=== PATIENT | female | born 1930 | race Caucasian/White ===

== ENCOUNTER 2016-05-09 21:37 | Emergency (ER) | payer MEDICARE, OTHER ==
[~2016-05-09] VITALS: Ht 152.4 cm; Wt 48.1 kg
[2016-05-09 22:38] LABS: BASOPHILS # (AUTO) 0.1 K/uL (0.0-0.2); BASOPHILS % (AUTO) 0.8 % (0.0-2.0); EOSINOPHILS # (AUTO) 0.2 K/uL (0.0-0.7); EOSINOPHILS % (AUTO) 3.3 % (0.0-7.0); HEMATOCRIT 38.5 % (37.0-47.0); HEMOGLOBIN 12.8 g/dL (12.0-16.0); LYMPHOCYTES # (AUTO) 2.4 K/uL (0.8-4.8); LYMPHOCYTES % (AUTO) 34.9 % (20.5-51.5); MEAN CORPUSCULAR HEMOGLOBIN 30.9 uug (27.0-31.0); MEAN CORPUSCULAR HGB CONC 33 g/dL (32.0-37.0); MEAN CORPUSCULAR VOLUME 92.7 fL (81.0-99.0); MONOCYTES # (AUTO) 0.6 K/uL (0.1-1.30); MONOCYTES % (AUTO) 8.7 % (0.0-11.0); NEUTROPHILS # (AUTO) 3.5 K/uL (1.8-8.9); NEUTROPHILS % (AUTO) 52.3 % (38.5-71.5); PLATELET COUNT (AUTO) 160 K/uL (150-450); RED BLOOD CELL COUNT(AUTO) 4.15 MIL/uL (4.20-5.40); RED CELL DISTRIBUTION WIDTH 12.6 % (11.5-14.5); WHITE BLOOD COUNT (AUTO) 6.8 K/uL (4.0-11.2)
[2016-05-09 22:45] LABS: CALCIUM 8.9 mg/dL (8.5-10.1); CREATININE 1.1 mg/dL (0.6-1.3); POTASSIUM 3.5 mmol/L (3.5-5.1)
[2016-05-09 22:59] LABS: ALBUMIN 3.4 g/dL (3.4-5.0); BILIRUBIN,DIRECT 0.1 mg/dL (0.0-0.2); BILIRUBIN,TOTAL 0.4 mg/dL (0.2-1.0); TOTAL PROTEIN, SERUM 6.8 g/dL (6.4-8.2)
--- NOTE | 2016-05-09 23:42 | NUR ---
Patient discharged to home in stable conditon WITH TAXI TAKING PT HOME. Written and verbal after care instructions given. Patient verbalizes understanding of instructions. WALKED OUT OF ER WITH STEADY GAIT. NO DISTRESS NOTED
[2016-05-09 23:43] VITALS: BP 131/55
== END 2016-05-09 23:44 | disposition home or self-care (01) ==
LOC: ER 21:37
DX: Z00.8 Encounter for other general examination (principal); K21.9 Gastro-esophageal reflux disease without esophagitis; Z88.6 Allergy status to analgesic agent; Z88.8 Allergy status to other drugs, medicaments and biological substances
CPT/HCPCS: 36415; 70030-TC; 84443; 85025; 85730; 93005; A4663

== ENCOUNTER 2016-07-28 19:54 | Inpatient (IN) | payer MEDICARE, OTHER ==
[~2016-07-28] VITALS: Ht 160 cm; Wt 49.9 kg
[2016-07-28] MEDS ORDERED: DORZ10DR8 EACHEYE (20:11)
[2016-07-28] MEDS ORDERED: TETRACAINE HCL 0.5% OPHT DROP 2 ML BOTTLE OP ONE (20:15)
[2016-07-28 20:27] LABS: BASOPHILS # (AUTO) 0.1 K/uL (0.0-8.0); BASOPHILS % (AUTO) 0.9 % (0.0-2.0); EOSINOPHILS # (AUTO) 0.2 K/uL (0.0-0.7); EOSINOPHILS % (AUTO) 1.9 % (0.0-7.0); HEMATOCRIT 39.2 % (37-47); LYMPHOCYTES # (AUTO) 2.8 K/UL (0.8-4.8); LYMPHOCYTES % (AUTO) 32.4 % (20.5-51.5); MEAN CORPUSCULAR HEMOGLOBIN 30.9 UUG (27.0-31.0); MEAN CORPUSCULAR HGB CONC 33 g/dL (32.0-37.0); MEAN CORPUSCULAR VOLUME 93.4 FL (81.0-99.0); MONOCYTES # (AUTO) 0.8 K/UL (0.1-1.30); MONOCYTES % (AUTO) 9.1 % (0.0-11.0); NEUTROPHILS # (AUTO) 4.9 K/UL (1.8-8.9); NEUTROPHILS % (AUTO) 55.7 % (38.5-71.5); PLATELET COUNT (AUTO) 195 K/UL (150-450); RED BLOOD CELL COUNT(AUTO) 4.19 MIL/UL (4.2-5.4); WHITE BLOOD COUNT (AUTO) 8.8 K/UL (4.0-11.2)
[2016-07-28 20:36] LABS: CARBON DIOXIDE 27 mmol/L (21-32); CHLORIDE 99 mmol/L (98-107); CREATININE 0.8 mg/dL (0.6-1.3); GLUCOSE 99 mg/dL (74-106); POTASSIUM 3.6 mmol/L (3.5-5.1); UREA NITROGEN, BLOOD 13 mg/dL (7-18)
[2016-07-28 20:42] LABS: ALANINE AMINOTRANSFERASE 23 U/L (14-59); ALKALINE PHOSPHATASE 89 U/L (50-136); ASPARTATE AMINOTRANSFERASE 26 U/L (15-37); BILIRUBIN,DIRECT 0.1 mg/dL (0.0-0.2); BILIRUBIN,TOTAL 0.3 mg/dL (0.2-1.0)
[2016-07-28] MEDS ORDERED: IV NORMAL SALINE 250 ML IV ONE (21:00)
[2016-07-28] MEDS ORDERED: IOHEXOL 350 100 ML INFUS..BTL ONE (21:00)
[2016-07-28] MEDS ORDERED: NORMAL SALINE FLUSH 10 ML DISP.SYRIN ONE (21:00)
--- NOTE | 2016-07-28 21:37 | NUR ---
Patient returned from Ct scan.
[2016-07-28] MEDS ORDERED: AMOX500C2 PO (21:39)
--- NOTE | 2016-07-28 21:56 | NUR ---
Call placed to [facility], Wendy Tena will be paged.
--- NOTE | 2016-07-28 22:30 | NUR ---
Call placed to [facility], Maria Del Carmen Pham will be paged.
[2016-07-28] MEDS ORDERED: ACETAMINOPHEN 325 MG TABLET PO PRN (23:15)
[2016-07-28] MEDS ORDERED: ONDANSETRON 4 MG/2 ML VIAL IV PRN (23:15)
[2016-07-28] MEDS ORDERED: HYDROCODONE/APAP 5-325MG TABLET PO PRN (23:15)
[2016-07-28] MEDS ORDERED: Z GUARD REMEDY PASTE 57 GM TUBE TOP PRN (23:15)
[2016-07-28] MEDS ORDERED: MAGNESIUM HYDROXIDE 30 ML LIQUID UDC PO PRN (23:15)
[2016-07-28] MEDS ORDERED: ENOXAPARIN SODIUM 30 MG/0.3 ML DISP.SYRIN SQ SCH (23:15)
--- NOTE | 2016-07-28 23:34 | NUR ---
Report called to JACKIE Boles. patient will be admitted to room 220 under telemetry.
--- NOTE | 2016-07-28 23:46 | NUR ---
US tech here at bedside, orders placed by inpatient MD.
[2016-07-29] VITALS: BP 118/53
--- NOTE | 2016-07-29 00:50 | NUR ---
admitted new patient to room 220.patient alert,oriented x4,patient reports no numbness at present times,no focal deficits,speech clear,bilateral pedal pulse intact.tele monitor shown SR, no acute distress noted.
--- NOTE | 2016-07-29 02:30 | NUR ---
PATIENT WAS SEEN BY DR. LANDIS.
[2016-07-29] MEDS ORDERED: TEMAZEPAM 7.5 MG CAPSULE PO PRN (02:45)
[2016-07-29] MEDS ORDERED: ONDANSETRON 4 MG/2 ML VIAL ONE (03:06)
--- NOTE | 2016-07-29 03:10 | NUR ---
PATIENT C/O NAUSEA, ZOFRAN 4 MG IV ADMIN.
[2016-07-29 04:00] VITALS: BP 115/54
--- NOTE | 2016-07-29 04:00 | NUR ---
NAUSEA RESOLVED,PATIENT SLEEPING,CONTINUE CLOSELY MONITOR.
--- NOTE | 2016-07-29 06:00 | NUR ---
NO ACUTE DISTRESS NOTED,NSR ON MONITOR, VITAL SIGNS REMAIN STABLE.
[2016-07-29 06:56] LABS: BASOPHILS % (AUTO) 0.6 % (0.0-2.0); EOSINOPHILS # (AUTO) 0.2 K/uL (0.0-0.7); EOSINOPHILS % (AUTO) 2.2 % (0.0-7.0); HEMATOCRIT 38.5 % (37-47); HEMOGLOBIN 12.9 G/DL (12.0-16.0); LYMPHOCYTES # (AUTO) 2.8 K/UL (0.8-4.8); LYMPHOCYTES % (AUTO) 36.9 % (20.5-51.5); MEAN CORPUSCULAR HEMOGLOBIN 31.4 UUG (27.0-31.0); MEAN CORPUSCULAR HGB CONC 34 g/dL (32.0-37.0); MEAN CORPUSCULAR VOLUME 93.3 FL (81.0-99.0); MONOCYTES # (AUTO) 0.7 K/UL (0.1-1.30); MONOCYTES % (AUTO) 9.4 % (0.0-11.0); NEUTROPHILS # (AUTO) 3.9 K/UL (1.8-8.9); NEUTROPHILS % (AUTO) 50.9 % (38.5-71.5); PLATELET COUNT (AUTO) 190 K/UL (150-450); RED BLOOD CELL COUNT(AUTO) 4.12 MIL/UL (4.2-5.4); WHITE BLOOD COUNT (AUTO) 7.6 K/UL (4.0-11.2)
[2016-07-29] MEDS: PANTOPRAZOLE SODIUM 40 MG TABLET.DR PO SCH (07:00)
--- NOTE | 2016-07-29 07:10 | NUR ---
PATIENT RECEIVED IN ROOM ALERT AWAKE IN NO ACUTE DISTRESS. DENIED PAIN. SR ON CARPET TECHNICIAN.
[2016-07-29 08:03] LABS: CARBON DIOXIDE 28 mmol/L (21-32); CHLORIDE 106 mmol/L (98-107); CREATININE 0.8 mg/dL (0.6-1.3); GLUCOSE 92 mg/dL (74-106); MAGNESIUM 2.3 mg/dL (1.8-2.4); PHOSPHOROUS 4.7 mg/dL (2.5-4.9); POTASSIUM 4.4 mmol/L (3.5-5.1); UREA NITROGEN, BLOOD 12 mg/dL (7-18)
[2016-07-29] MEDS: ASPIRIN 325 MG TABLET PO SCH (08:57)
[2016-07-29] MEDS: AMOXICILLIN TRIHYDRATE 500 MG CAPSULE PO SCH ×3 (11:33→21:14)
[2016-07-29 12:10] VITALS: BP 102/60
[2016-07-29] MEDS: DORZOLAMIDE 2% OPHT DROP 10 ML BOTTLE EACHEYE SCH ×2 (13:00→18:09)
--- NOTE | 2016-07-29 14:14 | NUR ---
PATIENT LEAVING FOR MRI VIA AMBULANCE. PATIENT ALERT AND ORIENTED IN NO ACUTE DISTRESS.
--- NOTE | 2016-07-29 15:40 | NUR ---
PATIENT RETURNED FROM MRI. NO S/S OF DISTRESS OBSERVED.
[2016-07-29 15:49] VITALS: BP 110/55
--- NOTE | 2016-07-29 18:52 | NUR ---
END OF SHIFT NOTE: PATIENT IN NO ACUTE DISTRESS THROUGHOUT SHIFT. VSS. DENIED PAIN. INDEPENDENT WITH ADLs. NEEDS MET BY STAFF.
[2016-07-29 20:16] VITALS: BP 100/54
[2016-07-29] MEDS ORDERED: MAG HYDROX/AL HYDROX/SIMETH 30 ML LIQUID UDC PO PRN (20:45)
[2016-07-29] MEDS ORDERED: ENOXAPARIN SODIUM 30 MG/0.3 ML DISP.SYRIN SQ SCH (21:00)
[2016-07-30 04:49] VITALS: BP 107/44
[2016-07-30] MEDS: PANTOPRAZOLE SODIUM 40 MG TABLET.DR PO SCH (06:08)
[2016-07-30] MEDS: AMOXICILLIN TRIHYDRATE 500 MG CAPSULE PO SCH ×2 (06:08→13:57)
--- NOTE | 2016-07-30 06:41 | NUR ---
PT IN BED, SLEEPING AT THIS TIME. IN NO ACUTE SIGNS OF DISTRESS. C/O STOMACH UPSET LAST NIGHT, DR. PEREZ ORDERED MYLANTA, BUT REFUSED TO TAKE IT, SHE SAID SHE FELT BETTER AFTER WALKING IN THE HALLWAY. SAFETY MAINTAINED THROUGHOUT SHIFT. CALL LIGHT WITHIN REACH.
--- NOTE | 2016-07-30 08:20 | NUR ---
PATIENT AMBULATING AROUND FACILITY WITHOUT DIFFICULTY.
[2016-07-30] MEDS: ASPIRIN 325 MG TABLET PO SCH (09:00)
[2016-07-30] MEDS: DORZOLAMIDE 2% OPHT DROP 10 ML BOTTLE EACHEYE SCH ×3 (09:51→17:00)
[2016-07-30 11:43] VITALS: BP 118/56
--- NOTE | 2016-07-30 14:00 | NUR ---
PATIENT PARTICIPATED WITH PT AND TOLERATED WELL.
--- NOTE | 2016-07-30 15:35 | NUR ---
Discharge Plan: Once patient is medically cleared patient will be discharged back home [[id number] [facility] [place] [address]
[2016-07-30 15:49] VITALS: BP 113/48
[2016-07-30] MEDS ORDERED: ASPI81TA31 PO (17:51)
--- NOTE | 2016-07-30 18:30 | NUR ---
DISCHARGING PATIENT HOME IN A STABLE CONDITION. STROKE EDUCATION PROVIDED AND VOICED UNDERSTANDING. DISCHARGE INSTRUCTIONS PROVIDED. LIST OF BELONGINGS SIGNED AND ALL WAS TAKEN. IV REMOVED, PRESSURE APPLIED AND HEMOSTASIS ACHIEVED. PATIENT LEAVING VIA PRIVATE CAR ACCOMPANIED BY DAUGHTER.
== END 2016-07-30 18:30 | disposition home or self-care (01) | DRG 69 ==
LOC: ER 19:58 → TELE 07-29 00:12 → MED 07-29 17:15
PROVIDERS: ADMIT Nurse Practitioner Acute Care; ATTEND Internal Medicine
DX: G45.9 Transient cerebral ischemic attack, unspecified (principal); E44.0 Moderate protein-calorie malnutrition; Z68.1 Body mass index [BMI] 19.9 or less, adult; G43.109 Migraine with aura, not intractable, without status migrainosus; I67.82 Cerebral ischemia; G43.B0 Ophthalmoplegic migraine, not intractable; H40.9 Unspecified glaucoma; Z86.79 Personal history of other diseases of the circulatory system; M81.0 Age-related osteoporosis without current pathological fracture; J44.9 Chronic obstructive pulmonary disease, unspecified; K21.9 Gastro-esophageal reflux disease without esophagitis; E88.09 Other disorders of plasma-protein metabolism, not elsewhere classified; M62.50 Muscle wasting and atrophy, not elsewhere classified, unspecified site; E78.5 Hyperlipidemia, unspecified; Z87.891 Personal history of nicotine dependence; M19.90 Unspecified osteoarthritis, unspecified site
CPT/HCPCS: 36415; 70030-TC; 70470; 70551; 71010; 83735; 84100; 84443; 85025; 85651; 85730; 86850; 86900; 86901; 93005; 93307; 93880; 97161; A4663; J1650; J2405; J3490; J7050; Q9967

== ENCOUNTER 2016-08-11 06:53 | Emergency (ER) | payer MEDICARE, OTHER ==
[~2016-08-11] VITALS: Ht 152.4 cm; Wt 49.0 kg
[~2016-08-11 06:53] MED LIST: AMOX500C2 PO; ASPI81TA31 PO; DORZ10DR8 EACHEYE
[2016-08-11] MEDS ORDERED: ONDANSETRON 4 MG/2 ML VIAL IV ONE (07:30)
[2016-08-11] MEDS ORDERED: HYDROMORPHONE 1 MG/1 ML DISP.SYRIN IV ONE (07:30)
[2016-08-11] MEDS ORDERED: PANTOPRAZOLE SODIUM 40 MG VIAL IV ONE (07:30)
[2016-08-11 07:51] LABS: BASOPHILS # (AUTO) 0.1 K/uL (0.0-8.0); BASOPHILS % (AUTO) 0.8 % (0.0-2.0); EOSINOPHILS # (AUTO) 0.2 K/uL (0.0-0.7); EOSINOPHILS % (AUTO) 2.7 % (0.0-7.0); HEMATOCRIT 40.2 % (37-47); HEMOGLOBIN 13.5 G/DL (12.0-16.0); LYMPHOCYTES # (AUTO) 2.3 K/UL (0.8-4.8); MEAN CORPUSCULAR HEMOGLOBIN 31.2 UUG (27.0-31.0); MEAN CORPUSCULAR HGB CONC 34 g/dL (32.0-37.0); MEAN CORPUSCULAR VOLUME 92.9 FL (81.0-99.0); MONOCYTES # (AUTO) 0.4 K/UL (0.1-1.30); MONOCYTES % (AUTO) 5.8 % (0.0-11.0); NEUTROPHILS # (AUTO) 4.5 K/UL (1.8-8.9); NEUTROPHILS % (AUTO) 59.7 % (38.5-71.5); PLATELET COUNT (AUTO) 216 K/UL (150-450); RED BLOOD CELL COUNT(AUTO) 4.33 MIL/UL (4.2-5.4); WHITE BLOOD COUNT (AUTO) 7.5 K/UL (4.0-11.2)
[2016-08-11] MEDS ORDERED: ONDANSETRON 4 MG/2 ML VIAL ONE ×2 (07:54→08:52)
[2016-08-11] MEDS ORDERED: PANTOPRAZOLE SODIUM 40 MG VIAL ONE (07:54)
[2016-08-11] MEDS ORDERED: HYDROMORPHONE 1 MG/1 ML DISP.SYRIN ONE (07:54)
[2016-08-11 07:59] LABS: CARBON DIOXIDE 29 mmol/L (21-32); CHLORIDE 105 mmol/L (98-107); CREATININE 0.9 mg/dL (0.6-1.3); GLUCOSE 90 mg/dL (74-106); POTASSIUM 3.3 mmol/L (3.5-5.1); UREA NITROGEN, BLOOD 12 mg/dL (7-18)
[2016-08-11 08:05] LABS: ALANINE AMINOTRANSFERASE 25 U/L (14-59); ALKALINE PHOSPHATASE 90 U/L (50-136); ASPARTATE AMINOTRANSFERASE 27 U/L (15-37); BILIRUBIN,DIRECT 0.1 mg/dL (0.0-0.2); BILIRUBIN,TOTAL 0.6 mg/dL (0.2-1.0); LIPASE 104 U/L (73-393); TOTAL PROTEIN, SERUM 7.3 g/dL (6.4-8.2)
[2016-08-11 08:11] LABS: *BILIRUBIN,URIN NEGATIVE (NEGATIVE); *BLOOD, URINE NEGATIVE (NEGATIVE); *CLARITY,URINE CLEAR (CLEAR); *COLOR,URINE YELLOW (YELLOW); *KETONES,URINE NEGATIVE (NEGATIVE); *PROTEIN,URINE NEGATIVE (NEGATIVE); *UROBILINOGEN,URINE 0.2 E.U./dl (NORMAL); LEUKOCYTE ESTERASE ,URINE NEGATIVE (NEGATIVE); NITRITE, URINE NEGATIVE (NEGATIVE); UGLUCOSE NEGATIVE (NEGATIVE)
[2016-08-11 08:23] LABS: BACTERIA,URINE NONE SEEN /HPF (NONE SEEN); RBC,URINE 0-3 /HPF (0-3); SQUAMOUS EPITHELIAL CELL,UR FEW /HPF (NONE SEEN); WBC,URINE 0-3 /HPF (0-3)
[2016-08-11] MEDS ORDERED: ONDANSETRON IV *ER 4 MG/2 ML VIAL IV ONE (08:45)
[2016-08-11] MEDS ORDERED: IV NORMAL SALINE 1000 ML BAG IV ONE (08:45)
[2016-08-11] MEDS ORDERED: PROMETHAZINE HCL 25 MG/1 ML VIAL IV ONE (09:30)
[2016-08-11] MEDS ORDERED: PROMETHAZINE HCL 25 MG/1 ML VIAL ONE (09:37)
--- NOTE | 2016-08-11 10:25 | NUR ---
fluid done. d/c instruction ready but the pt is lethargic and not ready to be d/stephan. md notified. vs stable, relief of pain and nausea aT THIS POINT.
--- NOTE | 2016-08-11 14:07 | NUR ---
PT FEELS READY TO GO HOME. CALLED TAXI PER PT REQUEST. Patient discharged to home in stable conditon. Written and verbal after care instructions given. Patient verbalizes understanding of instructions.PT WALKS IN STEADY GAIT.
[2016-08-11 14:08] VITALS: BP 111/61
== END 2016-08-11 14:10 | disposition home or self-care (01) ==
LOC: ER 06:56
DX: K52.9 Noninfective gastroenteritis and colitis, unspecified (principal); K21.9 Gastro-esophageal reflux disease without esophagitis; H40.9 Unspecified glaucoma; Z88.6 Allergy status to analgesic agent; Z88.8 Allergy status to other drugs, medicaments and biological substances; Z79.82 Long term (current) use of aspirin
CPT/HCPCS: 36415; 71010; 74176; 80048; 80076; 81001; 83690; 84484; 85025; 87086; 96361; 96365; 96374; 96375; 99285; A4663; C9113; J1170; J2405 ×2; J2550; J7030 ×2; 70030-TC

== ENCOUNTER 2016-08-30 07:32 | Inpatient (IN) | payer MEDICARE, OTHER ==
[~2016-08-30] VITALS: Ht 152.4 cm; Wt 48.5 kg
[~2016-08-30 07:32] MED LIST changes: -AMOX500C2 PO; -ASPI81TA31 PO
[2016-08-30] MEDS ORDERED: LORA-114 PO (07:57)
[2016-08-30] MEDS ORDERED: ALBU18HF2 IH (07:58)
--- NOTE | 2016-08-30 08:06 | NUR ---
PT IS IN ROOM #2A. DR STOKES EVALUATED THE PT.
[2016-08-30] MEDS ORDERED: IV NORMAL SALINE 1000 ML BAG IV ONE (08:30)
[2016-08-30] MEDS ORDERED: CEFTRIAXONE 1 G in IV DEXTROSE 5% 50 ML IV ONE (08:30)
[2016-08-30] MEDS ORDERED: IPRATROPIUM BROMIDE 0.5 MG/2.5 ML NEBU NEB ONE (08:30)
[2016-08-30] MEDS ORDERED: methylPREDNISolone SOD SUCC 125 MG/2 ML VIAL IV ONE (08:30)
[2016-08-30] MEDS ORDERED: ALBUTEROL SULFATE 2.5 MG/3 ML NEBU NEB ONE (08:30)
[2016-08-30] MEDS ORDERED: AZITHROMYCIN 250 MG TABLET PO ONE (08:30)
[2016-08-30] MEDS ORDERED: methylPREDNISolone SOD SUCC 125 MG/2 ML VIAL ONE (08:49)
[2016-08-30] MEDS ORDERED: CEFTRIAXONE 1 G VIAL ONE (08:49)
[2016-08-30] MEDS ORDERED: AZITHROMYCIN 250 MG TABLET ONE (08:50)
[2016-08-30] MEDS ORDERED: LEVOFLOXACIN 500 MG/D5W 500 MG in PREMIXED 1 EACH IV ONE ×2 (09:00→14:00)
[2016-08-30] MEDS ORDERED: IPRATROPIUM BROMIDE 0.5 MG/2.5 ML NEBU ONE (09:02)
[2016-08-30] MEDS ORDERED: ALBUTEROL SULFATE 2.5 MG/3 ML NEBU ONE (09:02)
[2016-08-30 09:16] LABS: BASOPHILS # (AUTO) 0.1 K/uL (0.0-8.0); BASOPHILS % (AUTO) 0.6 % (0.0-2.0); EOSINOPHILS # (AUTO) 0.2 K/uL (0.0-0.7); EOSINOPHILS % (AUTO) 1.8 % (0.0-7.0); HEMATOCRIT 40.3 % (37-47); HEMOGLOBIN 13.1 G/DL (12.0-16.0); LYMPHOCYTES # (AUTO) 2.6 K/UL (0.8-4.8); LYMPHOCYTES % (AUTO) 25.3 % (20.5-51.5); MEAN CORPUSCULAR HEMOGLOBIN 30.7 UUG (27.0-31.0); MEAN CORPUSCULAR HGB CONC 33 g/dL (32.0-37.0); MEAN CORPUSCULAR VOLUME 94.7 FL (81.0-99.0); MONOCYTES # (AUTO) 0.5 K/UL (0.1-1.30); MONOCYTES % (AUTO) 5.2 % (0.0-11.0); NEUTROPHILS # (AUTO) 6.8 K/UL (1.8-8.9); NEUTROPHILS % (AUTO) 67.1 % (38.5-71.5); PLATELET COUNT (AUTO) 144 K/UL (150-450); RED BLOOD CELL COUNT(AUTO) 4.26 MIL/UL (4.2-5.4); WHITE BLOOD COUNT (AUTO) 10.2 K/UL (4.0-11.2)
[2016-08-30 09:24] LABS: ALANINE AMINOTRANSFERASE 28 U/L (14-59); ALKALINE PHOSPHATASE 97 U/L (50-136); ASPARTATE AMINOTRANSFERASE 26 U/L (15-37); BILIRUBIN,DIRECT 0.1 mg/dL (0.0-0.2); BILIRUBIN,TOTAL 0.5 mg/dL (0.2-1.0); CARBON DIOXIDE 25 mmol/L (21-32); CHLORIDE 103 mmol/L (98-107); CREATININE 0.9 mg/dL (0.6-1.3); GLUCOSE 87 mg/dL (74-106); POTASSIUM 3.7 mmol/L (3.5-5.1); TOTAL PROTEIN, SERUM 7.5 g/dL (6.4-8.2); UREA NITROGEN, BLOOD 14 mg/dL (7-18)
[2016-08-30 09:44] LABS: BAND % (MANUAL) 2 % (0-10); EOSINOPHILS % (MANUAL) 2 % (0-8); LYMPHOCYTES % (MANUAL) 29 % (20-40); METAMYELOCYTES % 1 % (0-1); MONOCYTES % (MANUAL) 8 % (2-10); NEUTROPHILS % (MANUAL) 58 % (42-75)
[2016-08-30 10:33] LABS: *BILIRUBIN,URIN NEGATIVE (NEGATIVE); *BLOOD, URINE NEGATIVE (NEGATIVE); *CLARITY,URINE CLEAR (CLEAR); *COLOR,URINE YELLOW (YELLOW); *KETONES,URINE NEGATIVE (NEGATIVE); *PROTEIN,URINE NEGATIVE (NEGATIVE); *UROBILINOGEN,URINE 0.2 E.U./dl (NORMAL); LEUKOCYTE ESTERASE ,URINE TRACE (NEGATIVE); NITRITE, URINE NEGATIVE (NEGATIVE); UGLUCOSE NEGATIVE (NEGATIVE)
[2016-08-30 10:44] LABS: BACTERIA,URINE NONE SEEN /HPF (NONE SEEN); RBC,URINE 0-3 /HPF (0-3); SQUAMOUS EPITHELIAL CELL,UR FEW /HPF (NONE SEEN); WBC,URINE 0-3 /HPF (0-3)
--- NOTE | 2016-08-30 10:58 | NUR ---
PT WAS TRANSFERED TO M/S BED #204. REPORT WAS GIVEN TO M/S RN.
--- NOTE | 2016-08-30 11:30 | NUR ---
RECEIVED FOR ADMISSION 86 YEARS OLD FEMALE FROM THE ED WITH DX OF COPD EXERCEBATION PLACED INTO BED FIXED AND MADE COMFORTABLE PATIENT IS ALERT AND ORIENTED DENIES PAIN OR DISCOMFORTS AT THIS TIME STATED THAT HE FEELS COMFORTABLE AT THIS TIME SINCE HE RECEIVED THE STEROIDS AND ANTIBIOTICS. DR SANON HERE WITH DIET ORDERS AND NOTED.
[2016-08-30 11:33] VITALS: BP 109/56
[2016-08-30] MEDS ORDERED: Z GUARD REMEDY PASTE 57 GM TUBE TOP PRN (13:00)
[2016-08-30] MEDS ORDERED: ZOLPIDEM 5 MG TABLET PO PRN (13:00)
[2016-08-30] MEDS ORDERED: ACETAMINOPHEN 325 MG TABLET PO PRN (13:00)
[2016-08-30] MEDS ORDERED: IPRATROPIUM BROMIDE 0.5 MG/2.5 ML NEBU NEB PRN (13:00)
[2016-08-30] MEDS ORDERED: HYDROCODONE/APAP 5-325MG TABLET PO PRN (13:00)
[2016-08-30] MEDS ORDERED: ONDANSETRON 4 MG/2 ML VIAL IV PRN (13:00)
[2016-08-30] MEDS ORDERED: ALBUTEROL SULFATE 2.5 MG/ 0.5 ML NEBU NEB PRN (13:00)
[2016-08-30] MEDS ORDERED: LEVOFLOXACIN 750MG/D5W 750 MG in PREMIXED 1 EACH IV SCH (13:00)
[2016-08-30] MEDS ORDERED: MAGNESIUM HYDROXIDE 30 ML LIQUID UDC PO PRN (13:00)
[2016-08-30] MEDS ORDERED: LEVOFLOXACIN 500 MG/D5W 500 MG in PREMIXED 1 EACH IV SCH ×2 (13:15→14:00)
[2016-08-30] MEDS ORDERED: methylPREDNISolone SOD SUCC 125 MG/2 ML VIAL IV SCH ×2 (14:00)
[2016-08-30] MEDS: methylPREDNISolone SOD SUCC 40 MG/ML VIAL IV SCH ×2 (14:59→21:23)
--- NOTE | 2016-08-30 15:00 | NUR ---
PATIENT IS REQUESTING FOR A ROOM CHANGE DUE TO STATED THE PATIENT NEXT DOOR IS NOISY SO THE PATIENT MOVED TO ROOM 220.
[2016-08-30 16:00] VITALS: BP 118/54
[2016-08-30] MEDS ORDERED: DORZOLAMIDE 2% OPHT DROP 10 ML BOTTLE EACHEYE SCH (17:00)
--- NOTE | 2016-08-30 18:00 | NUR ---
PATIENT IS RESTING STATED DID NOT SLEEP MUCH LAST NITE DOZING ON AND OFF NO SHORTNESS OF BREATH NO DISTRESS NOTED.
[2016-08-30] MEDS: IPRATROPIUM BROMIDE 0.5 MG/2.5 ML NEBU NEB SCH (19:09)
[2016-08-30] MEDS: ALBUTEROL SULFATE 2.5 MG/ 0.5 ML NEBU NEB SCH (19:09)
[2016-08-30 20:00] VITALS: BP 111/44
--- NOTE | 2016-08-30 21:00 | NUR ---
Patient in bed having breathing treatment, no SOB denies chest pain. Vital signs are WNL.
[2016-08-30] MEDS: DORZOLAMIDE 2% OPHT DROP 10 ML BOTTLE EACHEYE SCH (21:19)
[2016-08-31] MEDS: IPRATROPIUM BROMIDE 0.5 MG/2.5 ML NEBU NEB SCH ×4 (00:49→19:30)
[2016-08-31] MEDS: ALBUTEROL SULFATE 2.5 MG/ 0.5 ML NEBU NEB SCH ×4 (00:49→19:30)
[2016-08-31 04:00] VITALS: BP 115/86
--- NOTE | 2016-08-31 05:42 | NUR ---
END OF SHIFT NOTES. PATIENT SLEPT WELL THROUGHOUT SHIFT. V/S STABLE. NO ACUTE DISTRESS NOTED. NO COMPLAINTS OF PAIN. SAFETY MAINTAINED. CALL LIGHT WITHIN REACH.
[2016-08-31] MEDS: methylPREDNISolone SOD SUCC 40 MG/ML VIAL IV SCH (06:00)
[2016-08-31] MEDS: PANTOPRAZOLE SODIUM 40 MG TABLET.DR PO SCH (06:00)
[2016-08-31 06:42] LABS: CARBON DIOXIDE 22 mmol/L (21-32); CHLORIDE 107 mmol/L (98-107); CHOLESTEROL 193 mg/dL (<200); GLUCOSE 169 mg/dL (74-106); HDL CHOLESTEROL 90 mg/dL (40-60); MAGNESIUM 2.1 mg/dL (1.8-2.4); PHOSPHOROUS 3.3 mg/dL (2.5-4.9); POTASSIUM 3.5 mmol/L (3.5-5.1); TRIGLYCERIDES 31 MG/DL (30-150); UREA NITROGEN, BLOOD 10 mg/dL (7-18)
[2016-08-31 07:06] LABS: EOSINOPHILS % (AUTO) 0.1 % (0.0-7.0); HEMATOCRIT 37.8 % (37-47); HEMOGLOBIN 12.9 G/DL (12.0-16.0); LYMPHOCYTES # (AUTO) 1.1 K/UL (0.8-4.8); LYMPHOCYTES % (AUTO) 5.5 % (20.5-51.5); MEAN CORPUSCULAR HEMOGLOBIN 31.8 UUG (27.0-31.0); MEAN CORPUSCULAR HGB CONC 34 g/dL (32.0-37.0); MEAN CORPUSCULAR VOLUME 93.5 FL (81.0-99.0); MONOCYTES # (AUTO) 0.4 K/UL (0.1-1.30); MONOCYTES % (AUTO) 2.1 % (0.0-11.0); NEUTROPHILS # (AUTO) 19.2 K/UL (1.8-8.9); NEUTROPHILS % (AUTO) 92.3 % (38.5-71.5); PLATELET COUNT (AUTO) 209 K/UL (150-450); RED BLOOD CELL COUNT(AUTO) 4.04 MIL/UL (4.2-5.4); WHITE BLOOD COUNT (AUTO) 20.7 K/UL (4.0-11.2)
[2016-08-31 07:38] LABS: BAND % (MANUAL) 17 % (0-10); LYMPHOCYTES % (MANUAL) 5 % (20-40); MONOCYTES % (MANUAL) 2 % (2-10); NEUTROPHILS % (MANUAL) 76 % (42-75)
[2016-08-31] MEDS: LORATADINE 10 MG TABLET PO SCH (08:15)
[2016-08-31] MEDS: DORZOLAMIDE 2% OPHT DROP 10 ML BOTTLE EACHEYE SCH ×2 (08:16→21:40)
[2016-08-31] MEDS ORDERED: LEVOFLOXACIN 500 MG/D5W 500 MG in PREMIXED 1 EACH IV ONE (09:00)
--- NOTE | 2016-08-31 10:30 | NUR ---
PATIENT IS ALERT AND ORIENTED COMPLAINED THAT SHE FELT SOME PAIN IN HER EYES AFTER TAKING HER EYE DROPS THAT LASTED FOR A FEW MINUTES AND STATED THAT SHE HAS HAD THIS KIND OF PAIN BEFORE BUT NOT INTENSE THIS AND SHE GAVE ME THE PHONE NUMBER OF HER EYE DOCTOR DR MUJICA AT [facility] AND I NOTIFIED YAS GUTHRIE AND SHE STATED WILL SEE PATIENT.
--- NOTE | 2016-08-31 11:51 | NUR ---
YAS COUNSELING PROGRAM LEADER HERE TO SEE PATIENT AND PATIENT ALSO COMPLAINED THAT SHE IS FEELING TREMORS AND DOES NOT USUALLY FEEL THIS WAY HER WBC IS 20.7 WITH ORDER TO RECHECK LABS ABD DISCONTINUE SOLU MEDROL AND NOTED.
[2016-08-31 12:22] VITALS: BP 115/45
[2016-08-31 14:57] LABS: CARBON DIOXIDE 20 mmol/L (21-32); CHLORIDE 106 mmol/L (98-107); CREATININE 1.1 mg/dL (0.6-1.3); GLUCOSE 150 mg/dL (74-106); POTASSIUM 3.5 mmol/L (3.5-5.1); UREA NITROGEN, BLOOD 11 mg/dL (7-18)
[2016-08-31 14:59] LABS: BASOPHILS # (AUTO) 0.3 K/uL (0.0-8.0); HEMOGLOBIN 13.1 G/DL (12.0-16.0); WHITE BLOOD COUNT (AUTO) 26.1 K/UL (4.0-11.2)
[2016-08-31 15:01] LABS: BASOPHILS % (AUTO) 1.2 % (0.0-2.0); EOSINOPHILS # (AUTO) 0.3 K/uL (0.0-0.7); HEMATOCRIT 38.2 % (37-47); MEAN CORPUSCULAR HEMOGLOBIN 32.2 UUG (27.0-31.0); MEAN CORPUSCULAR HGB CONC 34 g/dL (32.0-37.0); MEAN CORPUSCULAR VOLUME 93.4 FL (81.0-99.0); MONOCYTES % (AUTO) 3.8 % (0.0-11.0); NEUTROPHILS # (AUTO) 23.5 K/UL (1.8-8.9); PLATELET COUNT (AUTO) 220 K/UL (150-450); RED BLOOD CELL COUNT(AUTO) 4.09 MIL/UL (4.2-5.4)
--- NOTE | 2016-08-31 15:36 | NUR ---
REPEAT RESULT OF WBC IS 26.1 YAS TAPPER OPERATOR AWARE WITH NEW ORDERS AND NOTED.
[2016-08-31 15:37] VITALS: BP 122/45
[2016-08-31] MEDS: PIPERACILLIN/TAZOBACTAM/D5W 3.375 G in PREMIXED 1 EACH IV SCH ×2 (15:57→21:40)
--- NOTE | 2016-08-31 17:00 | NUR ---
ASSISTED PATIENT INTO THE SHOWER ROOM AND SHE SHOWERED AND BACK TO HER ROOM AND IS IN GOOD SPIRITS WITH NO SHORTNESS OF BREATH AT THIS TIME.
--- NOTE | 2016-08-31 18:00 | NUR ---
RESTING IN BED EATING DINNER HAS NO COMPLAINTS AT THIS TIME.
[2016-08-31 20:00] VITALS: BP 135/73
[2016-09-01] MEDS: IPRATROPIUM BROMIDE 0.5 MG/2.5 ML NEBU NEB SCH ×4 (00:58→19:42)
[2016-09-01] MEDS: ALBUTEROL SULFATE 2.5 MG/ 0.5 ML NEBU NEB SCH ×4 (00:59→19:42)
[2016-09-01 05:06] VITALS: BP 128/63
[2016-09-01] MEDS: PANTOPRAZOLE SODIUM 40 MG TABLET.DR PO SCH (06:00)
[2016-09-01] MEDS: PIPERACILLIN/TAZOBACTAM/D5W 3.375 G in PREMIXED 1 EACH IV SCH ×3 (06:03→21:11)
[2016-09-01 06:39] LABS: CARBON DIOXIDE 24 mmol/L (21-32); CHLORIDE 104 mmol/L (98-107); CREATININE 1.1 mg/dL (0.6-1.3); EOSINOPHILS % (AUTO) 0.1 % (0.0-7.0); GLUCOSE 99 mg/dL (74-106); HEMATOCRIT 36.2 % (37-47); HEMOGLOBIN 12.4 G/DL (12.0-16.0); LYMPHOCYTES % (AUTO) 10.5 % (20.5-51.5); MAGNESIUM 2.1 mg/dL (1.8-2.4); MEAN CORPUSCULAR HEMOGLOBIN 32.1 UUG (27.0-31.0); MEAN CORPUSCULAR HGB CONC 34 g/dL (32.0-37.0); MEAN CORPUSCULAR VOLUME 93.8 FL (81.0-99.0); MONOCYTES # (AUTO) 0.9 K/UL (0.1-1.30); MONOCYTES % (AUTO) 4.8 % (0.0-11.0); NEUTROPHILS # (AUTO) 15.8 K/UL (1.8-8.9); NEUTROPHILS % (AUTO) 84.6 % (38.5-71.5); PHOSPHOROUS 3.2 mg/dL (2.5-4.9); PLATELET COUNT (AUTO) 199 K/UL (150-450); POTASSIUM 3.7 mmol/L (3.5-5.1); RED BLOOD CELL COUNT(AUTO) 3.86 MIL/UL (4.2-5.4); UREA NITROGEN, BLOOD 24 mg/dL (7-18); WHITE BLOOD COUNT (AUTO) 18.7 K/UL (4.0-11.2)
--- NOTE | 2016-09-01 06:48 | NUR ---
pt alert,oriented,ambulatory,denies any pain or discomfort,vss,afebrile, productive cough,continue on HHN TREATMENT by RT. no acute distress,all needs attended,call light at reached.
--- NOTE | 2016-09-01 08:16 | NUR ---
ALERT ORIENTED AND VERBALLY RESPONSIVE DENIES PAIN OR DISCOMFORTS AT THIS TIME.LEFT HAND HEPLOCK INTACT FLUSHED PER PROTOCOL.NO S/S OF ADVERSE OR ALLERGIC REACTIONS AT THIS TIME.WALKING BACK AND FORTH IN THE HALLWAY WITH NO SHORTNESS OF BREATH AT THIS TIME.
[2016-09-01] MEDS: DORZOLAMIDE 2% OPHT DROP 10 ML BOTTLE EACHEYE SCH ×2 (09:08→21:12)
[2016-09-01] MEDS: LORATADINE 10 MG TABLET PO SCH (09:08)
[2016-09-01] MEDS: LEVOFLOXACIN 250MG /D5W 250 MG in PREMIXED 1 EACH IV SCH (09:08)
[2016-09-01] MEDS ORDERED: LORAZEPAM 0.5 MG TABLET PO PRN (11:15)
--- NOTE | 2016-09-01 11:29 | NUR ---
PATIENT SEEN AND EXAMINED BY YAS SMITH COMPENSATION ANALYST WITH NEW ORDERS AND NOTED.
[2016-09-01 12:01] VITALS: BP 110/54
--- NOTE | 2016-09-01 15:00 | NUR ---
REMAIN ON IV ANTIBIOTICS ORDERED WITH NO ADVERSE OR ALLERGIC REACTIONS AT THIS TIME.CONTINUE ON HAND HELD NEBULIZER ORDERED WITH RESPIRATIONS UNLABORED REMAIN ON ROOM AIR NOT IN DISTRESS AT THIS TIME.
[2016-09-01 15:55] VITALS: BP 117/69
--- NOTE | 2016-09-01 17:19 | NUR ---
RESTING NOT IN DISTRESS AT THIS TIME.
--- NOTE | 2016-09-01 18:00 | NUR ---
UP AND AMBULATING IN THE HALLWAY SHE IS IN GOOD SPIRITS STATED FEELING BETTER NO SHORTNESS OF BREATH AT THIS TIME.
--- NOTE | 2016-09-01 19:35 | NUR ---
PT RECEIVED IN BED, AWAKE. A/OX4. ABLE TO MAKE NEEDS KNOWN. V/S STABLE. NO ACUTE DISTRESS NOTED. NO COMPLAINTS OF PAIN AT THIS TIME. IV HEP-LOCKED, INTACT/PATENT. SAFETY MEASURES IMPLEMENTED. CALL LIGHT WITHIN REACH. WILL CONTINUE TO MONITOR.
[2016-09-01 20:42] VITALS: BP 114/65
[2016-09-02] MEDS: IPRATROPIUM BROMIDE 0.5 MG/2.5 ML NEBU NEB SCH ×3 (00:39→13:16)
[2016-09-02] MEDS: ALBUTEROL SULFATE 2.5 MG/ 0.5 ML NEBU NEB SCH ×3 (00:39→13:16)
[2016-09-02 04:00] VITALS: BP 119/62
--- NOTE | 2016-09-02 05:54 | NUR ---
END OF SHIFT NOTES. PT SLEPT WELL THROUGHOUT SHIFT. NEEDS ATTENDED. V/S STABLE. NO ACUTE DISTRESS NOTED. NO COMPLAINS OF PAIN. IV ANTIBIOTICS INFUSED. SAFETY MAINTAINED. CALL LIGHT WITHIN REACH.
[2016-09-02] MEDS: PANTOPRAZOLE SODIUM 40 MG TABLET.DR PO SCH (06:16)
[2016-09-02] MEDS: PIPERACILLIN/TAZOBACTAM/D5W 3.375 G in PREMIXED 1 EACH IV SCH ×2 (06:16→14:00)
[2016-09-02 07:12] LABS: BASOPHILS % (AUTO) 0.1 % (0.0-2.0); EOSINOPHILS # (AUTO) 0.2 K/uL (0.0-0.7); EOSINOPHILS % (AUTO) 1.9 % (0.0-7.0); HEMATOCRIT 37.8 % (37-47); HEMOGLOBIN 12.9 G/DL (12.0-16.0); LYMPHOCYTES # (AUTO) 3.3 K/UL (0.8-4.8); LYMPHOCYTES % (AUTO) 30.3 % (20.5-51.5); MEAN CORPUSCULAR HEMOGLOBIN 32.1 UUG (27.0-31.0); MEAN CORPUSCULAR HGB CONC 34 g/dL (32.0-37.0); MEAN CORPUSCULAR VOLUME 93.9 FL (81.0-99.0); MONOCYTES # (AUTO) 0.8 K/UL (0.1-1.30); MONOCYTES % (AUTO) 7.4 % (0.0-11.0); NEUTROPHILS # (AUTO) 6.6 K/UL (1.8-8.9); NEUTROPHILS % (AUTO) 60.3 % (38.5-71.5); PLATELET COUNT (AUTO) 181 K/UL (150-450); RED BLOOD CELL COUNT(AUTO) 4.02 MIL/UL (4.2-5.4)
[2016-09-02 07:25] LABS: CARBON DIOXIDE 26 mmol/L (21-32); CHLORIDE 107 mmol/L (98-107); CREATININE 1.1 mg/dL (0.6-1.3); GLUCOSE 84 mg/dL (74-106); MAGNESIUM 2.1 mg/dL (1.8-2.4); PHOSPHOROUS 3.8 mg/dL (2.5-4.9); UREA NITROGEN, BLOOD 23 mg/dL (7-18)
--- NOTE | 2016-09-02 07:30 | NUR ---
PATIENT IS AWAKE ALERT AND ORIENTED.DENIES PAIN OR DISCOMFORTS AT THIS TIME.REMAIN ON ANTIBIOTICS ORDERED WITH NO ADVERSE OR ALLERGIC REACTIONS AT THIS TIME.UP AND AMBULATING TO DESIRED DESTINATIONS WITH STEADY GAIT.NO DISTRESS NOTED.
[2016-09-02 07:31] LABS: WHITE BLOOD COUNT (AUTO) 10.9 K/UL (4.0-11.2)
[2016-09-02] MEDS: LEVOFLOXACIN 250MG /D5W 250 MG in PREMIXED 1 EACH IV SCH (08:29)
[2016-09-02] MEDS: DORZOLAMIDE 2% OPHT DROP 10 ML BOTTLE EACHEYE SCH (08:29)
[2016-09-02] MEDS: LORATADINE 10 MG TABLET PO SCH (08:33)
[2016-09-02 11:43] VITALS: BP 112/50
[2016-09-02] MEDS ORDERED: IPRA0.2S6 NEB (11:52)
[2016-09-02] MEDS ORDERED: LEVO500T90 PO (11:52)
[2016-09-02] MEDS ORDERED: ALBU2.5V13 NEB (11:52)
--- NOTE | 2016-09-02 12:19 | NUR ---
NEW ORDERS NOTED TO DISCHARGE PATIENT HOME TODAY AND NOTED PATIENTS IV SITE INFILTERATED AND REMOVED PATIENT HAS NO IV SITE AT THIS TIME.
--- NOTE | 2016-09-02 14:00 | NUR ---
DISCHARGE INSTRUCTIONS AND PRESCRIPTIONS GIVEN TO PATIENT AND PATIENT INSTRUCTED TO CALL HER PULMONARY AND HER PRIMARY DOCTOR FOR A FOLLOW UP APPOINTMENT WITHIN THE NEXT ONE TO TWO DAYS.SHE WAS ALSO INSTRUCTED ON HOME ERIC SET UP WITH ACCREDITED HAND HELD NEBULIZERS AND SHE EXPRESSED UNDERSTANDING.PATIENT DECLINED EDUCATION FROM [facility] PHARMACIST PATIENT STATED THAT HER DAUGHTER LESLEY WILL BE COMING TO PICK HER UP SOON.
--- NOTE | 2016-09-02 14:05 | NUR ---
PATIENT IS BEING DISCHARGED AND HAS NO IV SITE.
--- NOTE | 2016-09-02 15:00 | NUR ---
PATIENT DISCHARGED PICKED UP BY [facility] STATED THAT HER DAUGHTER WAS NOT ABLE TO MAKE IT UNTIL LATER THIS EVENING DISCHARGED IN SATISFACTORY CONDITION WITH ALL HER PERSONAL BELONGINGS.
[2016-09-02] MEDS ORDERED: LACTOBACILLUS RHAMNOSUS GG 1 EACH CAPSULE PO SCH (21:00)
== END 2016-09-02 15:00 | disposition home health service (06) | DRG 192 ==
LOC: ER 07:32 → MED 10:40
PROVIDERS: ADMIT Family Medicine; ATTEND Family Medicine
DX: J44.0 Chronic obstructive pulmonary disease with (acute) lower respiratory infection (principal); J20.9 Acute bronchitis, unspecified; J44.1 Chronic obstructive pulmonary disease with (acute) exacerbation; K21.9 Gastro-esophageal reflux disease without esophagitis; Z86.73 Personal history of transient ischemic attack (TIA), and cerebral infarction without residual deficits; Z87.891 Personal history of nicotine dependence; J31.0 Chronic rhinitis; H40.9 Unspecified glaucoma; Z86.79 Personal history of other diseases of the circulatory system; M81.0 Age-related osteoporosis without current pathological fracture; R73.9 Hyperglycemia, unspecified; E78.5 Hyperlipidemia, unspecified; D69.6 Thrombocytopenia, unspecified
CPT/HCPCS: 36415; 70030-TC; 71010; 83605; 83735; 84100; 85025; 85730; 87040; 87086; 93005; 94640; 97161; A4663; J0696; J1956; J2543; J2920; J2930; J3590; J7030; J7050; Q0144

== ENCOUNTER 2016-12-02 07:30 | Inpatient (IN) | payer MEDICARE, OTHER ==
[~2016-12-02] VITALS: Ht 152.4 cm; Wt 49.9 kg
[~2016-12-02 07:30] MED LIST changes: +ALBU2.5V13 NEB; +IPRA0.2S6 NEB; +LEVO500T90 PO; +LORA-114 PO
--- NOTE | 2016-12-02 08:04 | NUR ---
Dr Borges at the bedside for eval and exam.
[2016-12-02] MEDS ORDERED: ASPIRIN 81 MG TAB.CHEW PO ONE (08:15)
[2016-12-02] MEDS ORDERED: NITROGLYCERIN OINT 1 GM PACKET TP ONE ×2 (08:15→08:29)
[2016-12-02] MEDS ORDERED: ASPIRIN 81 MG TAB.CHEW ONE (08:29)
[2016-12-02 08:43] LABS: BASOPHILS # (AUTO) 0.1 K/uL (0.0-8.0); EOSINOPHILS # (AUTO) 0.1 K/uL (0.0-0.7); EOSINOPHILS % (AUTO) 2.3 % (0.0-7.0); HEMATOCRIT 40.2 % (31.2-41.9); HEMOGLOBIN 13.8 g/dL (10.9-14.3); LYMPHOCYTES % (AUTO) 34.7 % (20.5-51.5); MEAN CORPUSCULAR HEMOGLOBIN 31.6 uug (24.7-32.8); MEAN CORPUSCULAR HGB CONC 34 g/dL (32.3-35.6); MEAN CORPUSCULAR VOLUME 92.1 fL (75.5-95.3); MONOCYTES # (AUTO) 0.5 K/uL (2.0-10.0); MONOCYTES % (AUTO) 8.3 % (0.0-11.0); NEUTROPHILS % (AUTO) 53.7 % (38.5-71.5); PLATELET COUNT (AUTO) 169 K/uL (179-408); RED BLOOD CELL COUNT(AUTO) 4.36 MIL/uL (3.63-4.92); WHITE BLOOD COUNT (AUTO) 5.7 K/uL (3.8-11.8)
[2016-12-02 08:46] LABS: CARBON DIOXIDE 28 mmol/L (21-32); CHLORIDE 107 mmol/L (98-107); CREATININE 0.9 mg/dL (0.6-1.3); GLUCOSE 103 mg/dL (74-106); POTASSIUM 3.8 mmol/L (3.5-5.1); UREA NITROGEN, BLOOD 13 mg/dL (7-18)
[2016-12-02 08:58] LABS: ALANINE AMINOTRANSFERASE 31 U/L (14-59); ALKALINE PHOSPHATASE 90 U/L (50-136); ASPARTATE AMINOTRANSFERASE 28 U/L (15-37); BILIRUBIN,DIRECT 0.1 mg/dL (0.0-0.2); BILIRUBIN,TOTAL 0.4 mg/dL (0.2-1.0); TOTAL PROTEIN, SERUM 6.8 g/dL (6.4-8.2)
[2016-12-02] MEDS ORDERED: BIMA2.5D5 EACHEYE (08:58)
[2016-12-02] MEDS ORDERED: ALBU8.5H8 INH (08:58)
[2016-12-02 10:00] VITALS: BP 129/56
[2016-12-02] MEDS ORDERED: ALBUTEROL SULFATE 2.5 MG/3 ML NEBU NEB PRN (10:15)
[2016-12-02] MEDS ORDERED: ONDANSETRON 4 MG/2 ML VIAL IV PRN (10:15)
[2016-12-02] MEDS ORDERED: IPRATROPIUM BROMIDE 0.5 MG/2.5 ML NEBU NEB PRN (10:15)
[2016-12-02] MEDS ORDERED: ACETAMINOPHEN 325 MG TABLET PO PRN (10:15)
[2016-12-02] MEDS ORDERED: LEVOFLOXACIN 500 MG/D5W 500 MG in PREMIXED 1 EACH IV SCH (10:15)
[2016-12-02] MEDS ORDERED: NITROGLYCERIN 0.4 MG/TAB BOTTLE SL PRN (10:15)
[2016-12-02] MEDS ORDERED: methylPREDNISolone SOD SUCC 40 MG/ML VIAL IV SCH (10:15)
[2016-12-02] MEDS ORDERED: LEVOFLOXACIN 500 MG/D5W 500 MG in PREMIXED 1 EACH IV ONE (11:00)
[2016-12-02] MEDS: methylPREDNISolone SOD SUCC 40 MG/ML VIAL IV SCH ×2 (11:39→20:20)
[2016-12-02] MEDS: FAMOTIDINE 20 MG TABLET PO SCH (11:39)
[2016-12-02 11:43] VITALS: BP 98/44
--- NOTE | 2016-12-02 12:50 | NUR ---
IVONNE KAISER IN MED ROOM, WILL CALL PHARMACY
[2016-12-02] MEDS: IPRATROPIUM BROMIDE 0.5 MG/2.5 ML NEBU NEB SCH ×2 (13:30→19:30)
[2016-12-02] MEDS: ALBUTEROL SULFATE 2.5 MG/3 ML NEBU NEB SCH ×2 (13:30→19:30)
--- NOTE | 2016-12-02 14:00 | NUR ---
PT REFUSING THIS DOSE OF LEVAQUIN, WANTS TO TALK TO DAUGHTER AND WILL DECIDE TOMORROW IF WANTS TO GO THROUGH WITH COURSE OF ABX
--- NOTE | 2016-12-02 14:18 | NUR ---
PT STATES IV IN LAC IS INTOLERABLE AND WANTS IN REMOVED. REMOVED WITH NO REDNESS OR IRRITATION NOTED, 20 G IV INSERTED IN LEFT WRIST, INTACT AND PATENT
[2016-12-02] MEDS: MAG HYDROX/AL HYDROX/SIMETH 30 ML LIQUID UDC PO PRN (14:39)
[2016-12-02] MEDS: LIDOCAINE VISCUS 2% 15 ML UDC MM PRN (14:40)
[2016-12-02 16:13] VITALS: BP 123/65
[2016-12-02] MEDS: DORZOLAMIDE 2% OPHT DROP 10 ML BOTTLE EACHEYE SCH (16:23)
--- NOTE | 2016-12-02 17:59 | NUR ---
PT AWAKE, SITTING IN CHAIR. IN NO ACUTE DISTRESS. HAS DENIED CHEST PAIN SINCE ADMISSION, STATES RESOLVED IN ER AFTER TAKING ASPIRIN. PHYSICAL THERAPY EVALUATED PT, PT STABLE WITH NO COMPLAINTS OF DIZZINESS WHILE AMBULATING. HAT PLACED IN TOILET TO COLLECT URINE, PT URINATED AND STATED "THE URINE FELL OUT" HAT REPLACED ON TOILET, WILL ENDORSE TO PROTOTYPE ASSEMBLER ELECTRONICS TO COLLECT URINE. ALL SAFETY AND COMFORT MEASURES ATTENDED TO, CALL LIGHT IN REACH
[2016-12-02] MEDS ORDERED: BIMATOPROST 0.01% OPHT DROP 2.5 ML BOTTLE EACHEYE SCH (18:00)
--- NOTE | 2016-12-02 18:55 | NUR ---
URINE SENT TO LAB
[2016-12-02 19:52] LABS: *BILIRUBIN,URIN NEGATIVE (NEGATIVE); *BLOOD, URINE NEGATIVE (NEGATIVE); *CLARITY,URINE CLEAR (CLEAR); *COLOR,URINE YELLOW (YELLOW); *KETONES,URINE NEGATIVE (NEGATIVE); *PROTEIN,URINE NEGATIVE (NEGATIVE); *UROBILINOGEN,URINE 0.2 E.U./dl (NORMAL); LEUKOCYTE ESTERASE ,URINE TRACE (NEGATIVE); NITRITE, URINE NEGATIVE (NEGATIVE); PH,URINE 8.5 (5.0-8.0); UGLUCOSE NEGATIVE (NEGATIVE)
[2016-12-02 19:53] LABS: SQUAMOUS EPITHELIAL CELL,UR FEW /HPF (NONE SEEN); WBC,URINE 0-3 /HPF (0-3)
[2016-12-02 20:00] VITALS: BP 112/57
--- NOTE | 2016-12-02 20:00 | NUR ---
RECEIVED SHIFT REPORT FROM PREVIOUS SHIFT NURSE. PATIENT IS IN STABLE CONDITION, NO S/S OF DISTRESS. NO COMPLAINTS OF CHEST PAIN. PATIENT IS AMBULATORY, A/O X3. BED POSITION IN LOCKED/LOW POSITION, CALL LIGHT WITHIN REACH. SAFETY AND COMFORT WILL BE PROVIDED THROUGHOUT SHIFT.
[2016-12-02] MEDS: LATANOPROST OPHT DROP 2.5 ML BOTTLE EACHEYE SCH (20:21)
[2016-12-02 23:59] VITALS: BP 125/61
[2016-12-03 04:00] VITALS: BP 121/66
[2016-12-03] MEDS: MAG HYDROX/AL HYDROX/SIMETH 30 ML LIQUID UDC PO PRN ×2 (04:53→13:30)
--- NOTE | 2016-12-03 06:24 | NUR ---
PATIENT SLEPT COMFORTABLY THROUGHOUT THE NIGHT UNTIL 5 WHEN PATIENT COMPLAINED OF STOMACH/EPIGASTRIC DISCOMFORT THAT DID NOT RADIATE. PATIENTS VITAL SIGNS CHECKED AND WNL. ADMINISTERED MAALOX FOR PATIENT. WILL CONTINUE TO MONITOR PATIENT AND FORWARD PATIENTS CONDITION INFORMATION TO NEXT SHIFT. SAFETY AND COMFORT WAS IMPLEMENTED THROUGHOUT SHIFT. PATIENT DID NOT COMPLAIN OF CHEST PAIN THAT RADIATED TO LEFT SHOULDER. BED IN LOCKED/LOW POSITION WITH SIDE RAILS UP X2. CALL LIGHT WITHIN REACH. PATIENT IN SAFE ENVIRONMENT.
[2016-12-03 06:45] LABS: ALANINE AMINOTRANSFERASE 32 U/L (14-59); ALKALINE PHOSPHATASE 87 U/L (50-136); ASPARTATE AMINOTRANSFERASE 28 U/L (15-37); BILIRUBIN,TOTAL 0.4 mg/dL (0.2-1.0); CARBON DIOXIDE 28 mmol/L (21-32); CHLORIDE 106 mmol/L (98-107); CHOLESTEROL 206 mg/dL (<200); CREATININE 0.9 mg/dL (0.6-1.3); GLUCOSE 156 mg/dL (74-106); HDL CHOLESTEROL 98 mg/dL (40-60); MAGNESIUM 2.3 mg/dL (1.8-2.4); PHOSPHOROUS 3.9 mg/dL (2.5-4.9); TOTAL PROTEIN, SERUM 6.9 g/dL (6.4-8.2); TRIGLYCERIDES 33 MG/DL (30-150); UREA NITROGEN, BLOOD 14 mg/dL (7-18)
[2016-12-03 06:52] LABS: THYROID STIMULATING HORMONE 0.307 mIU/mL (0.358-3.740)
[2016-12-03 07:01] LABS: HEMATOCRIT 42.1 % (37-47); HEMOGLOBIN 14.1 G/DL (12.0-16.0); LYMPHOCYTES # (AUTO) 1.7 K/UL (0.8-4.8); LYMPHOCYTES % (AUTO) 13.3 % (20.5-51.5); MEAN CORPUSCULAR HEMOGLOBIN 31.2 UUG (27.0-31.0); MEAN CORPUSCULAR HGB CONC 33 g/dL (32.0-37.0); MEAN CORPUSCULAR VOLUME 93.6 FL (81.0-99.0); MONOCYTES # (AUTO) 0.4 K/UL (0.1-1.30); MONOCYTES % (AUTO) 3.3 % (0.0-11.0); NEUTROPHILS % (AUTO) 83.4 % (38.5-71.5); PLATELET COUNT (AUTO) 197 K/UL (150-450); WHITE BLOOD COUNT (AUTO) 13.1 K/UL (4.0-11.2)
[2016-12-03] MEDS: DORZOLAMIDE 2% OPHT DROP 10 ML BOTTLE EACHEYE SCH ×2 (08:10→17:32)
[2016-12-03] MEDS: ALBUTEROL SULFATE 2.5 MG/3 ML NEBU NEB SCH ×3 (09:21→20:12)
[2016-12-03] MEDS: IPRATROPIUM BROMIDE 0.5 MG/2.5 ML NEBU NEB SCH ×3 (09:21→20:12)
[2016-12-03] MEDS: FAMOTIDINE 20 MG TABLET PO SCH (09:56)
[2016-12-03] MEDS: ASPIRIN EC 81 MG TABLET.DR PO SCH (09:56)
[2016-12-03] MEDS: LEVOFLOXACIN 250MG /D5W 250 MG in PREMIXED 1 EACH IV SCH (10:58)
[2016-12-03 11:43] LABS: BAND % (MANUAL) 11 % (0-10); LYMPHOCYTES % (MANUAL) 10 % (20-40); MONOCYTES % (MANUAL) 5 % (2-10); NEUTROPHILS % (MANUAL) 74 % (42-75)
[2016-12-03 11:55] VITALS: BP 102/55
[2016-12-03] MEDS: LIDOCAINE VISCUS 2% 15 ML UDC MM PRN (13:30)
[2016-12-03] MEDS ORDERED: predniSONE 20 MG TABLET PO ONE (13:30)
--- NOTE | 2016-12-03 13:30 | NUR ---
PREDNISONE PO NOT GIVEN, PT RECEIVED 20 MG IV SOLU-MEDRYL THIS AM
[2016-12-03 15:47] VITALS: BP 106/45
--- NOTE | 2016-12-03 18:38 | NUR ---
PT AWAKE IN BED, IN NO ACUTE DISTRESS. ALL COMFORT AND SAFETY MEASURES MAINTAINED THROUGHOUT SHIFT, CALL LIGHT IN REACH
[2016-12-03 20:00] VITALS: BP 121/54
--- NOTE | 2016-12-03 20:00 | NUR ---
RECEIVED PATIENT AWAKE IN BED WITH VISITOR AT BEDSIDE. PATIENT IS A/O X4. DENIES PAIN OR DISCOMFORT AT THIS TIME. NO RESP. DISTRESS NOTED. H/L INTACT AND PATENT. CALL LIGHT IN REACH. ALL NEEDS ATTENDED. WILL CONTINUE TO MONITOR AND ASSESS.
[2016-12-03] MEDS: ATORVASTATIN 10 MG TABLET PO SCH ×2 (20:36→21:00)
[2016-12-03] MEDS: LATANOPROST OPHT DROP 2.5 ML BOTTLE EACHEYE SCH (20:36)
[2016-12-04] MEDS: IPRATROPIUM BROMIDE 0.5 MG/2.5 ML NEBU NEB SCH ×3 (01:23→12:48)
[2016-12-04] MEDS: ALBUTEROL SULFATE 2.5 MG/3 ML NEBU NEB SCH ×3 (01:23→12:49)
--- NOTE | 2016-12-04 05:55 | NUR ---
PATIENT AWAKE IN BED. SLEPT AT INTERVALS. DENIES PAIN OR DISCOMFORT. NO RESP. DISTRESS NOTED. VSS. CALL LIGHT IN REACH. ALL NEEDS ATTENDED.
--- NOTE | 2016-12-04 06:15 | NUR ---
SURGERY NURSE CALLED ASKING IF PATIENT IS READY FOR EGD THIS AM. INFORMED NURSE THAT THERE IS NO ORDERS REGARDING ANY EGD PROCEDURE ORDERED FOR THIS MORNING. CALLED TRIMMER OPERATOR THREE KNIFE AND WAS TOLD PATIENT IS ON THE SCHEDULE FOR 8AM. HEADING AND PRIMING OPERATOR NOTIFIED. PATIENT AWAKE IN ROOM AND IS VERY A/O X4. PATIENT STATED SHE WAS UNDER THE IMPRESSION THAT SHE WOULD BE HAVING AN US OF THE GALLBLADDER FIRST AND THEN EGD IF NEEDED. CALLED BACK TO SURGERY TO INFORM THEM. JAELYN FROM SURGERY IS CALLING DR. MARTINEZ FOR FURTHER ORDERS.
[2016-12-04 06:25] VITALS: BP 112/51
[2016-12-04 06:29] LABS: ALANINE AMINOTRANSFERASE 27 U/L (14-59); ALKALINE PHOSPHATASE 78 U/L (50-136); ASPARTATE AMINOTRANSFERASE 18 U/L (15-37); BILIRUBIN,TOTAL 0.3 mg/dL (0.2-1.0); CARBON DIOXIDE 28 mmol/L (21-32); CHLORIDE 106 mmol/L (98-107); GLUCOSE 101 mg/dL (74-106); MAGNESIUM 2.3 mg/dL (1.8-2.4); PHOSPHOROUS 3.4 mg/dL (2.5-4.9); TOTAL PROTEIN, SERUM 6.5 g/dL (6.4-8.2); UREA NITROGEN, BLOOD 25 mg/dL (7-18)
--- NOTE | 2016-12-04 06:30 | NUR ---
SPOKE WITH DR. MARTINEZ AND RECEIVED ORDERS FOR CONSENT FOR EGD AND NPO.
[2016-12-04 06:36] LABS: BASOPHILS % (AUTO) 0.3 % (0.0-2.0); EOSINOPHILS % (AUTO) 0.1 % (0.0-7.0); HEMATOCRIT 38.3 % (37-47); HEMOGLOBIN 12.8 G/DL (12.0-16.0); LYMPHOCYTES # (AUTO) 2.7 K/UL (0.8-4.8); LYMPHOCYTES % (AUTO) 19.5 % (20.5-51.5); MEAN CORPUSCULAR HGB CONC 34 g/dL (32.0-37.0); MEAN CORPUSCULAR VOLUME 92.6 FL (81.0-99.0); MONOCYTES # (AUTO) 1.1 K/UL (0.1-1.30); MONOCYTES % (AUTO) 7.8 % (0.0-11.0); NEUTROPHILS % (AUTO) 72.3 % (38.5-71.5); PLATELET COUNT (AUTO) 183 K/UL (150-450); RED BLOOD CELL COUNT(AUTO) 4.14 MIL/UL (4.2-5.4); WHITE BLOOD COUNT (AUTO) 13.8 K/UL (4.0-11.2)
--- NOTE | 2016-12-04 06:40 | NUR ---
NOTIFIED PATIENT THAT MD WILL PERFORM EGD AT 830 THIS AM. PATIENT REFUSED TO HAVE PROCEDURE. PATIENT STATED SHE WOULD RATHER HAVE THE US AND WAIT FOR THE RESULTS AND IF EGD IS NECESSARY THEN SHE WILL BE WILLING TO HAVE IT DONE. CALLED BACK TO SURGERY TO INFORM THEM THAT PATIENT IS REFUSING AT THIS TIME AND MD HAS BEEN NOTIFIED OF CANCELATION. REMEDIATION BIOANALYTICS CONSULTANT NOTIFIED. ALL NEEDS ATTENDED. WILL CONTINUE TO MONITOR.
[2016-12-04] MEDS ORDERED: PANTOPRAZOLE SODIUM 40 MG TABLET.DR PO SCH (07:00)
[2016-12-04] MEDS ORDERED: predniSONE 20 MG TABLET PO SCH (08:00)
[2016-12-04] MEDS ORDERED: predniSONE 10 MG TABLET PO SCH (09:00)
[2016-12-04] MEDS: DORZOLAMIDE 2% OPHT DROP 10 ML BOTTLE EACHEYE SCH (09:34)
[2016-12-04] MEDS: ASPIRIN EC 81 MG TABLET.DR PO SCH (10:42)
[2016-12-04 11:56] VITALS: BP 118/41
[2016-12-04] MEDS: LEVOFLOXACIN 250MG /D5W 250 MG in PREMIXED 1 EACH IV SCH (13:46)
[2016-12-04] MEDS ORDERED: LORAZEPAM 1 MG TABLET PO PRN (14:00)
--- NOTE | 2016-12-04 14:16 | NUR ---
PT JUST FOUND OUT DOG HAS , WANTED TO LEAVE BUT DAUGHTER ADVISED PT TO STAY. ATIVAN WAS GIVEN FOR THE ANXIETY. WILL CONTINUE TO CLOSELY MONITOR
[2016-12-04 15:41] VITALS: BP 126/76
[2016-12-04] MEDS ORDERED: MAG30ORA PO (15:51)
[2016-12-04] MEDS ORDERED: PANT40TA2 PO (15:51)
[2016-12-04] MEDS ORDERED: PRED10TA PO (15:51)
[2016-12-04] MEDS ORDERED: LEVO250T2 PO (15:51)
[2016-12-04] MEDS ORDERED: ATOR10TA PO (15:51)
[2016-12-04] MEDS ORDERED: LACT1CAP69 PO (15:53)
--- NOTE | 2016-12-04 16:50 | NUR ---
DISCHARGE NOTED, PROTOCOL FOLLOWED, INSTRUCTIONS PROVIDED TO PATIENT, PATIENT VERBALIZED UNDERSTANDING. IV REMOVED WITH NO REDNESS OR IRRITATION NOTED. ALL BELONGINGS ACCOUNTED FOR AND RETURNED TO PATIENT. PT LEFT AMBULATORY IN PRIVATE CAR WITH DAUGHTER.
[2016-12-05] MEDS ORDERED: LEVOFLOXACIN 250 MG TABLET PO SCH (11:00)
== END 2016-12-04 16:50 | disposition home or self-care (01) | DRG 392 ==
LOC: ER 07:31 → TELE 09:30 → MED 12-03 13:25
PROVIDERS: ADMIT Internal Medicine; ATTEND Internal Medicine
DX: K21.9 Gastro-esophageal reflux disease without esophagitis (principal); D69.6 Thrombocytopenia, unspecified; J44.1 Chronic obstructive pulmonary disease with (acute) exacerbation; E05.90 Thyrotoxicosis, unspecified without thyrotoxic crisis or storm; E78.5 Hyperlipidemia, unspecified; J30.9 Allergic rhinitis, unspecified; Z86.73 Personal history of transient ischemic attack (TIA), and cerebral infarction without residual deficits; Z87.891 Personal history of nicotine dependence; I10 Essential (primary) hypertension; R53.1 Weakness; R73.9 Hyperglycemia, unspecified; D72.828 Other elevated white blood cell count; M81.0 Age-related osteoporosis without current pathological fracture; T38.0X5A Adverse effect of glucocorticoids and synthetic analogues, initial encounter
CPT/HCPCS: 36415; 70030-TC; 71010; 83735; 84100; 84443; 84481; 85025; 85730; 87086; 93005; 93307; 94640; 94664; A4663; J1956; J2920; J3590; J7512

== ENCOUNTER 2016-12-15 17:16 | Emergency (ER) | payer MEDICARE, OTHER ==
[~2016-12-15] VITALS: Ht 149.9 cm; Wt 49.4 kg
[~2016-12-15 17:16] MED LIST changes: -ALBU2.5V13 NEB; +ALBU8.5H8 INH; +ATOR10TA PO; +BIMA2.5D5 EACHEYE; -IPRA0.2S6 NEB; +LACT1CAP69 PO; +LEVO250T2 PO; -LEVO500T90 PO; -LORA-114 PO; +MAG30ORA PO; +PANT40TA2 PO; +PRED10TA PO
[2016-12-15] MEDS ORDERED: IV NORMAL SALINE 500 ML BAG IV ONE (17:45)
[2016-12-15] MEDS ORDERED: ONDANSETRON 4 MG/2 ML VIAL IV ONE (17:45)
[2016-12-15 18:13] LABS: BASOPHILS % (AUTO) 0.5 % (0.0-2.0); EOSINOPHILS # (AUTO) 0.1 K/uL (0.0-0.7); EOSINOPHILS % (AUTO) 1.8 % (0.0-7.0); HEMATOCRIT 40.8 % (37-47); HEMOGLOBIN 13.8 G/DL (12.0-16.0); LYMPHOCYTES # (AUTO) 2.2 K/UL (0.8-4.8); MEAN CORPUSCULAR HEMOGLOBIN 31.2 UUG (27.0-31.0); MEAN CORPUSCULAR HGB CONC 34 g/dL (32.0-37.0); MEAN CORPUSCULAR VOLUME 92.5 FL (81.0-99.0); MONOCYTES # (AUTO) 0.4 K/UL (0.1-1.30); MONOCYTES % (AUTO) 5.2 % (0.0-11.0); NEUTROPHILS # (AUTO) 5.5 K/UL (1.8-8.9); NEUTROPHILS % (AUTO) 65.5 % (38.5-71.5); PLATELET COUNT (AUTO) 164 K/UL (150-450); RED BLOOD CELL COUNT(AUTO) 4.41 MIL/UL (4.2-5.4); WHITE BLOOD COUNT (AUTO) 8.2 K/UL (4.0-11.2)
[2016-12-15 18:18] LABS: *BILIRUBIN,URIN NEGATIVE (NEGATIVE); *BLOOD, URINE NEGATIVE (NEGATIVE); *CLARITY,URINE CLEAR (CLEAR); *COLOR,URINE YELLOW (YELLOW); *KETONES,URINE NEGATIVE (NEGATIVE); *PROTEIN,URINE NEGATIVE (NEGATIVE); *UROBILINOGEN,URINE 0.2 E.U./dl (NORMAL); LEUKOCYTE ESTERASE ,URINE NEGATIVE (NEGATIVE); NITRITE, URINE NEGATIVE (NEGATIVE); UGLUCOSE NEGATIVE (NEGATIVE)
[2016-12-15] MEDS ORDERED: ONDANSETRON 4 MG/2 ML VIAL ONE (18:24)
[2016-12-15 18:26] LABS: CARBON DIOXIDE 27 mmol/L (21-32); CHLORIDE 107 mmol/L (98-107); CREATININE 0.8 mg/dL (0.6-1.3); GLUCOSE 87 mg/dL (74-106); POTASSIUM 3.6 mmol/L (3.5-5.1); UREA NITROGEN, BLOOD 13 mg/dL (7-18)
[2016-12-15 18:28] LABS: BACTERIA,URINE NONE SEEN /HPF (NONE SEEN); RBC,URINE 0-3 /HPF (0-3); SQUAMOUS EPITHELIAL CELL,UR NONE SEEN /HPF (NONE SEEN); WBC,URINE 0-3 /HPF (0-3)
[2016-12-15 18:32] LABS: ALANINE AMINOTRANSFERASE 32 U/L (14-59); ALKALINE PHOSPHATASE 75 U/L (50-136); ASPARTATE AMINOTRANSFERASE 29 U/L (15-37); BILIRUBIN,DIRECT 0.1 mg/dL (0.0-0.2); BILIRUBIN,TOTAL 0.4 mg/dL (0.2-1.0); LIPASE 101 U/L (73-393); TOTAL PROTEIN, SERUM 7.3 g/dL (6.4-8.2)
[2016-12-15] MEDS ORDERED: MAG HYDROX/AL HYDROX/SIMETH 30 ML LIQUID UDC PO ONE (18:45)
[2016-12-15] MEDS ORDERED: IPRATROPIUM BROMIDE 0.5 MG/2.5 ML NEBU NEB ONE (18:45)
[2016-12-15] MEDS ORDERED: DICYCLOMINE HCL 10 MG/5 ML UDC LIQ PO ONE (18:45)
[2016-12-15] MEDS ORDERED: ALBUTEROL SULFATE 2.5 MG/3 ML NEBU NEB ONE (18:45)
[2016-12-15] MEDS ORDERED: DICYCLOMINE HCL 10 MG/5 ML UDC LIQ ONE (19:01)
[2016-12-15] MEDS ORDERED: MAG HYDROX/AL HYDROX/SIMETH 30 ML LIQUID UDC ONE (19:01)
[2016-12-15] MEDS ORDERED: ALBUTEROL SULFATE 2.5 MG/3 ML NEBU ONE (19:03)
[2016-12-15] MEDS ORDERED: PANTOPRAZOLE SODIUM 40 MG VIAL IV ONE (19:15)
[2016-12-15] MEDS ORDERED: PANTOPRAZOLE SODIUM 40 MG VIAL ONE (19:33)
[2016-12-15 19:34] VITALS: BP 122/76
--- NOTE | 2016-12-15 19:34 | NUR ---
Patient discharged to home in stable conditon. Written and verbal after care instructions given. Patient verbalizes understanding of instructions.
== END 2016-12-15 19:35 | disposition home or self-care (01) ==
LOC: ER 17:17
DX: K21.9 Gastro-esophageal reflux disease without esophagitis (principal); R10.9 Unspecified abdominal pain; Z86.73 Personal history of transient ischemic attack (TIA), and cerebral infarction without residual deficits; J44.9 Chronic obstructive pulmonary disease, unspecified; Z88.6 Allergy status to analgesic agent
CPT/HCPCS: 36415; 71010; 83690; 85025; 93005; A4663; C9113; J2405; J7040

== ENCOUNTER 2017-01-18 14:36 | Emergency (ER) | payer MEDICARE, OTHER ==
[~2017-01-18] VITALS: Ht 152.4 cm; Wt 48.7 kg
[2017-01-18 16:38] LABS: BASOPHILS % (AUTO) 0.4 % (0.0-2.0); EOSINOPHILS # (AUTO) 0.1 K/uL (0.0-0.7); EOSINOPHILS % (AUTO) 1.6 % (0.0-7.0); HEMATOCRIT 45.1 % (31.2-41.9); HEMOGLOBIN 15.4 g/dL (10.9-14.3); LYMPHOCYTES # (AUTO) 2.2 K/uL (20.0-40.0); LYMPHOCYTES % (AUTO) 28.6 % (20.5-51.5); MEAN CORPUSCULAR HGB CONC 34 g/dL (32.3-35.6); MEAN CORPUSCULAR VOLUME 93.3 fL (75.5-95.3); MONOCYTES # (AUTO) 0.7 K/uL (2.0-10.0); MONOCYTES % (AUTO) 9.3 % (0.0-11.0); NEUTROPHILS # (AUTO) 4.6 K/uL (1.8-8.9); NEUTROPHILS % (AUTO) 60.1 % (38.5-71.5); PLATELET COUNT (AUTO) 180 K/uL (179-408); RED BLOOD CELL COUNT(AUTO) 4.83 MIL/uL (3.63-4.92); WHITE BLOOD COUNT (AUTO) 7.7 K/uL (3.8-11.8)
[2017-01-18 16:48] LABS: CARBON DIOXIDE 26 mmol/L (21-32); CHLORIDE 101 mmol/L (98-107); CREATININE 0.9 mg/dL (0.6-1.3); GLUCOSE 94 mg/dL (74-106); POTASSIUM 3.6 mmol/L (3.5-5.1); UREA NITROGEN, BLOOD 12 mg/dL (7-18)
[2017-01-18 16:50] LABS: ETHANOL < 3 MG/DL (0-0)
--- NOTE | 2017-01-18 16:58 | NUR ---
LEFT A MESSAGE FOR WYATT REDDY FOR EVALUATION. WAITING FOR CALL BACK
[2017-01-18 17:02] LABS: THYROID STIMULATING HORMONE 1.046 mIU/mL (0.358-3.740)
[2017-01-18 17:05] LABS: ALANINE AMINOTRANSFERASE 32 U/L (14-59); ALKALINE PHOSPHATASE 100 U/L (50-136); ASPARTATE AMINOTRANSFERASE 33 U/L (15-37); BILIRUBIN,DIRECT 0.1 mg/dL (0.0-0.2); BILIRUBIN,TOTAL 0.5 mg/dL (0.2-1.0); TOTAL PROTEIN, SERUM 8.6 g/dL (6.4-8.2)
--- NOTE | 2017-01-18 17:07 | NUR ---
BINU VALENZUELA WAS NOTIFIED REGARDING REQUEST FOR EVAL PER SANTINO "IT WILL BE A FEW HOURS UNTIL I GET THERE"
[2017-01-18 17:10] LABS: ACETAMINOPHEN < 2.0 ug/mL (10-30)
--- NOTE | 2017-01-18 17:11 | NUR ---
SPOK TO BINU AND INFORMED HER THAT WYATT IS WILLING TO HELP OUT IF SHE NEEDED HELP AND CAN COME EARLIER. PER BINU. "PLS TELL WYATT THAT, I GRATELY APPRECIATE IT". INFORMED WYATT THAT PER BINU IT'S OKAY TO HELP OUT. PER WYATT, ETA IS 20 MINS
--- NOTE | 2017-01-18 17:30 | NUR ---
WYATT REDDY AT BEDSIDE EVALUATING PT AT THIS TIME.
--- NOTE | 2017-01-18 18:30 | NUR ---
Patient discharged to home in stable conditon. Written and verbal after care instructions given. Patient verbalizes understanding of instructions. Prescription provided per MD's order. No further question or concerns noted prior on leaving the ED.
[2017-01-18 18:32] VITALS: BP 143/86
== END 2017-01-18 18:33 | disposition home or self-care (01) ==
LOC: ER 14:37
DX: F41.9 Anxiety disorder, unspecified (principal); I67.1 Cerebral aneurysm, nonruptured; E78.5 Hyperlipidemia, unspecified; H40.9 Unspecified glaucoma; J44.9 Chronic obstructive pulmonary disease, unspecified; K21.9 Gastro-esophageal reflux disease without esophagitis; Z86.73 Personal history of transient ischemic attack (TIA), and cerebral infarction without residual deficits; Z88.5 Allergy status to narcotic agent; I10 Essential (primary) hypertension; E03.9 Hypothyroidism, unspecified
CPT/HCPCS: 36415; 70030-TC; 71010; 83605; 84443; 85025; 85730; 87040; 93005; A4663; G0480; G0480-TC

== ENCOUNTER 2017-03-06 08:24 | Inpatient (IN) | payer MEDICARE, OTHER ==
[~2017-03-06] VITALS: Ht 152.4 cm; Wt 48.5 kg
[~2017-03-06 08:24] MED LIST changes: -LEVO250T2 PO; -PRED10TA PO
[2017-03-06] MEDS ORDERED: IV NORMAL SALINE 500 ML BAG IV ONE (08:30)
[2017-03-06] MEDS ORDERED: RANITIDINE TAB 300MG (08:40)
[2017-03-06] MEDS ORDERED: LUMIGAN 0.01% EYE DROPS (08:40)
[2017-03-06 08:46] LABS: BASOPHILS # (AUTO) 0.1 K/uL (0.0-8.0); BASOPHILS % (AUTO) 0.8 % (0.0-2.0); EOSINOPHILS # (AUTO) 0.2 K/uL (0.0-0.7); EOSINOPHILS % (AUTO) 1.6 % (0.0-7.0); HEMATOCRIT 41.6 % (31.2-41.9); HEMOGLOBIN 14.4 g/dL (10.9-14.3); LYMPHOCYTES # (AUTO) 3.4 K/uL (20.0-40.0); LYMPHOCYTES % (AUTO) 34.2 % (20.5-51.5); MEAN CORPUSCULAR HEMOGLOBIN 32.4 uug (24.7-32.8); MEAN CORPUSCULAR HGB CONC 35 g/dL (32.3-35.6); MEAN CORPUSCULAR VOLUME 93.7 fL (75.5-95.3); MONOCYTES # (AUTO) 0.6 K/uL (2.0-10.0); MONOCYTES % (AUTO) 5.6 % (0.0-11.0); NEUTROPHILS # (AUTO) 5.8 K/uL (1.8-8.9); NEUTROPHILS % (AUTO) 57.8 % (38.5-71.5); PLATELET COUNT (AUTO) 175 K/uL (179-408); RED BLOOD CELL COUNT(AUTO) 4.44 MIL/uL (3.63-4.92)
[2017-03-06 08:53] LABS: CARBON DIOXIDE 28 mmol/L (21-32); CHLORIDE 107 mmol/L (98-107); GLUCOSE 106 mg/dL (74-106); POTASSIUM 3.5 mmol/L (3.5-5.1); UREA NITROGEN, BLOOD 20 mg/dL (7-18)
[2017-03-06 08:59] LABS: ALANINE AMINOTRANSFERASE 36 U/L (14-59); ALKALINE PHOSPHATASE 83 U/L (50-136); ASPARTATE AMINOTRANSFERASE 32 U/L (15-37); BILIRUBIN,DIRECT 0.1 mg/dL (0.0-0.2); BILIRUBIN,TOTAL 0.4 mg/dL (0.2-1.0); TOTAL PROTEIN, SERUM 7.1 g/dL (6.4-8.2)
[2017-03-06] MEDS ORDERED: MAG HYDROX/AL HYDROX/SIMETH 30 ML LIQUID UDC PO PRN (10:15)
[2017-03-06] MEDS ORDERED: IPRATROPIUM BROMIDE 0.5 MG/2.5 ML NEBU NEB PRN (10:15)
[2017-03-06] MEDS ORDERED: ONDANSETRON 4 MG/2 ML VIAL IV PRN (10:15)
[2017-03-06] MEDS ORDERED: AMLODIPINE 5 MG TABLET PO SCH (10:15)
[2017-03-06] MEDS ORDERED: hydrALAZINE HCL 25 MG TABLET PO PRN (10:15)
[2017-03-06] MEDS ORDERED: ALBUTEROL SULFATE 2.5 MG/3 ML NEBU NEB PRN (10:15)
[2017-03-06] MEDS ORDERED: ACETAMINOPHEN 325 MG TABLET PO PRN (10:15)
[2017-03-06] MEDS ORDERED: MAGNESIUM HYDROXIDE 30 ML LIQUID UDC PO PRN (10:15)
--- NOTE | 2017-03-06 11:17 | NUR ---
PT TRANSFERED TO FLOOR IN STABLE CONDITION
[2017-03-06 11:45] VITALS: BP 138/66
--- NOTE | 2017-03-06 12:00 | NUR ---
PATIENT RECEIVED FROM THE ER IN SAFE AND STABLE CONDITION. NO S/S OF DISTRESS NOTED. NO C/O OF PAIN. CALL LIGHT WITHIN AT REACH. BED ALARM ON. SAFETY AND COMFORT PROVIDED. WILL CONTINUE MONITORING.
[2017-03-06 15:31] VITALS: BP 118/52
[2017-03-06] MEDS: ASPIRIN EC 325 MG TABLET.DR PO SCH (17:15)
[2017-03-06] MEDS: DORZOLAMIDE 2% OPHT DROP 10 ML BOTTLE EACHEYE SCH (17:18)
[2017-03-06] MEDS ORDERED: BIMATOPROST 0.01% OPHT DROP 2.5 ML BOTTLE EACHEYE SCH (18:00)
--- NOTE | 2017-03-06 18:47 | NUR ---
MRI ORDERED,SPOKE TO PATIENTS NURSE POOJA , TO BE DONE TOMORROW 03/07/17 AT 8.30 AM TABLETIME.FOREST RESOURCE SPECIALISTBELEN DUMONT NOTIFIED.
[2017-03-06 20:00] VITALS: BP 115/53
[2017-03-06] MEDS: AMLODIPINE 5 MG TABLET PO SCH (20:08)
[2017-03-06] MEDS ORDERED: ATORVASTATIN 10 MG TABLET PO SCH (21:00)
[2017-03-06] MEDS ORDERED: LATANOPROST OPHT DROP 2.5 ML BOTTLE EACHEYE SCH (21:00)
--- NOTE | 2017-03-06 21:00 | NUR ---
Vital signs stable. Anxious about current condition. For Brain MRI in AM, checklist completed. Consent in chart. NSR on the monitor.
[2017-03-07] VITALS: BP 121/60
[2017-03-07] MEDS ORDERED: LORAZEPAM 0.5 MG TABLET PO PRN (02:00)
[2017-03-07] MEDS ORDERED: LORAZEPAM 0.5 MG TABLET ONE (02:18)
--- NOTE | 2017-03-07 03:30 | NUR ---
Patient c/o insomnia, still anxious concerning previous elevated BP. MD notified. Ativan 0.5 mg po given as ordered.
[2017-03-07 05:59] LABS: BASOPHILS % (AUTO) 0.4 % (0.0-2.0); EOSINOPHILS # (AUTO) 0.2 K/uL (0.0-0.7); EOSINOPHILS % (AUTO) 3.1 % (0.0-7.0); HEMATOCRIT 39.5 % (31.2-41.9); HEMOGLOBIN 13.3 g/dL (10.9-14.3); LYMPHOCYTES # (AUTO) 2.9 K/uL (20.0-40.0); LYMPHOCYTES % (AUTO) 39.1 % (20.5-51.5); MEAN CORPUSCULAR HEMOGLOBIN 31.6 uug (24.7-32.8); MEAN CORPUSCULAR HGB CONC 34 g/dL (32.3-35.6); MEAN CORPUSCULAR VOLUME 94.1 fL (75.5-95.3); MONOCYTES # (AUTO) 0.5 K/uL (2.0-10.0); MONOCYTES % (AUTO) 7.3 % (0.0-11.0); NEUTROPHILS # (AUTO) 3.7 K/uL (1.8-8.9); NEUTROPHILS % (AUTO) 50.1 % (38.5-71.5); PLATELET COUNT (AUTO) 169 K/uL (179-408); RED BLOOD CELL COUNT(AUTO) 4.19 MIL/uL (3.63-4.92); WHITE BLOOD COUNT (AUTO) 7.4 K/uL (3.8-11.8)
[2017-03-07 06:12] LABS: ALANINE AMINOTRANSFERASE 29 U/L (14-59); ALKALINE PHOSPHATASE 62 U/L (50-136); ASPARTATE AMINOTRANSFERASE 22 U/L (15-37); BILIRUBIN,TOTAL 0.4 mg/dL (0.2-1.0); CARBON DIOXIDE 27 mmol/L (21-32); CHLORIDE 110 mmol/L (98-107); CREATININE 0.8 mg/dL (0.6-1.3); GLUCOSE 104 mg/dL (74-106); LIPASE 108 U/L (73-393); MAGNESIUM 2.2 mg/dL (1.8-2.4); PHOSPHOROUS 3.3 mg/dL (2.5-4.9); POTASSIUM 3.7 mmol/L (3.5-5.1); TOTAL PROTEIN, SERUM 6.3 g/dL (6.4-8.2); UREA NITROGEN, BLOOD 16 mg/dL (7-18)
[2017-03-07 06:21] LABS: THYROID STIMULATING HORMONE 0.862 mIU/mL (0.358-3.740)
--- NOTE | 2017-03-07 06:58 | NUR ---
Patient fairly rested, assisted w/ all needs. No acute resp distress, vital signs are stable. NSR on the monitor.
[2017-03-07] MEDS ORDERED: PANTOPRAZOLE SODIUM 40 MG TABLET.DR PO SCH (07:00)
--- NOTE | 2017-03-07 07:00 | NUR ---
received report from [facility] shift lead nurse, patient in bed awake, no evidence of distress noted at this time, bed in low position, side rails up x2.
[2017-03-07] MEDS: DORZOLAMIDE 2% OPHT DROP 10 ML BOTTLE EACHEYE SCH ×2 (08:07→17:13)
[2017-03-07] MEDS: AMLODIPINE 5 MG TABLET PO SCH (08:08)
[2017-03-07] MEDS: ASPIRIN EC 325 MG TABLET.DR PO SCH (08:08)
--- NOTE | 2017-03-07 08:30 | NUR ---
patient left for MRI
--- NOTE | 2017-03-07 10:00 | NUR ---
Patient returned from MRI, no evidence of distress noted.
[2017-03-07 11:46] VITALS: BP 121/52
[2017-03-07] MEDS ORDERED: AMLO5TAB2 PO ×3 (13:52→14:06)
[2017-03-07] MEDS ORDERED: HYDR25TA86 PO (14:04)
[2017-03-07 15:38] VITALS: BP 121/49
--- NOTE | 2017-03-07 18:25 | NUR ---
Patient was discharged after all patient teaching performed, IV removed, and name band removed. Instruction given on medications.
== END 2017-03-07 18:10 | disposition home or self-care (01) | DRG 305 ==
LOC: ER 08:24 → TELE 11:02
PROVIDERS: ADMIT Internal Medicine; ATTEND Internal Medicine
DX: I10 Essential (primary) hypertension (principal); I67.1 Cerebral aneurysm, nonruptured; D69.6 Thrombocytopenia, unspecified; J44.9 Chronic obstructive pulmonary disease, unspecified; H40.9 Unspecified glaucoma; Z86.73 Personal history of transient ischemic attack (TIA), and cerebral infarction without residual deficits; M81.0 Age-related osteoporosis without current pathological fracture; Z79.899 Other long term (current) drug therapy; Z87.891 Personal history of nicotine dependence; J30.9 Allergic rhinitis, unspecified; K21.9 Gastro-esophageal reflux disease without esophagitis; E78.5 Hyperlipidemia, unspecified
CPT/HCPCS: 36415; 70030-TC; 70450; 70551; 71045; 83690; 83735; 84100; 84443; 85025; 85730; 93005; A4663; J7040; J7042

== ENCOUNTER 2017-03-20 03:37 | Emergency (ER) | payer MEDICARE, OTHER ==
[~2017-03-20] VITALS: Ht 152.4 cm; Wt 49.4 kg
[~2017-03-20 03:37] MED LIST changes: +AMLO5TAB2 PO; +HYDR25TA86 PO; -LACT1CAP69 PO; -MAG30ORA PO
[2017-03-20 04:43] LABS: CARBON DIOXIDE 29 mmol/L (21-32); CHLORIDE 105 mmol/L (98-107); CREATININE 1.1 mg/dL (0.6-1.3); GLUCOSE 99 mg/dL (74-106); POTASSIUM 4.2 mmol/L (3.5-5.1); UREA NITROGEN, BLOOD 26 mg/dL (7-18)
[2017-03-20 04:56] LABS: ALANINE AMINOTRANSFERASE 25 U/L (14-59); ALKALINE PHOSPHATASE 72 U/L (50-136); ASPARTATE AMINOTRANSFERASE 25 U/L (15-37); BILIRUBIN,DIRECT 0.1 mg/dL (0.0-0.2); BILIRUBIN,TOTAL 0.3 mg/dL (0.2-1.0); TOTAL PROTEIN, SERUM 6.7 g/dL (6.4-8.2)
[2017-03-20 05:15] LABS: BASOPHILS # (AUTO) 0.1 K/uL (0.0-8.0); BASOPHILS % (AUTO) 0.8 % (0.0-2.0); EOSINOPHILS # (AUTO) 0.2 K/uL (0.0-0.7); EOSINOPHILS % (AUTO) 3.3 % (0.0-7.0); HEMATOCRIT 39.5 % (31.2-41.9); HEMOGLOBIN 13.2 g/dL (10.9-14.3); LYMPHOCYTES # (AUTO) 2.5 K/uL (20.0-40.0); LYMPHOCYTES % (AUTO) 39.2 % (20.5-51.5); MEAN CORPUSCULAR HEMOGLOBIN 31.5 uug (24.7-32.8); MEAN CORPUSCULAR HGB CONC 33 g/dL (32.3-35.6); MEAN CORPUSCULAR VOLUME 94.5 fL (75.5-95.3); MONOCYTES # (AUTO) 0.6 K/uL (2.0-10.0); MONOCYTES % (AUTO) 9.5 % (0.0-11.0); NEUTROPHILS % (AUTO) 47.2 % (38.5-71.5); PLATELET COUNT (AUTO) 165 K/uL (179-408); RED BLOOD CELL COUNT(AUTO) 4.18 MIL/uL (3.63-4.92); WHITE BLOOD COUNT (AUTO) 6.4 K/uL (3.8-11.8)
[2017-03-20 05:45] VITALS: BP 122/60
--- NOTE | 2017-03-20 05:45 | NUR ---
Patient discharged to home in stable conditon. Written and verbal after care instructions given. Patient verbalizes understanding of instructions.
== END 2017-03-20 06:05 | disposition home or self-care (01) ==
LOC: ER 03:40
DX: I67.1 Cerebral aneurysm, nonruptured (principal); E78.5 Hyperlipidemia, unspecified; J44.9 Chronic obstructive pulmonary disease, unspecified; K21.9 Gastro-esophageal reflux disease without esophagitis; Z86.73 Personal history of transient ischemic attack (TIA), and cerebral infarction without residual deficits; Z87.891 Personal history of nicotine dependence; Z88.5 Allergy status to narcotic agent
CPT/HCPCS: 36415; 70030-TC; 85025; 85730; 93005; A4663

== ENCOUNTER 2017-03-26 15:48 | Emergency (ER) | payer MEDICARE, OTHER ==
[~2017-03-26] VITALS: Ht 152.4 cm; Wt 49.0 kg
--- NOTE | 2017-03-26 15:55 | NUR ---
Pt was triaged and placed in room 5a, pt stated she needs to move her car because she is afraid it might get towed. Pt states she feels comfortable driving and moving her car and ambulated out of ER with steady gait.
--- NOTE | 2017-03-26 16:30 | NUR ---
Pt returned to ER and is in room 5a.
--- NOTE | 2017-03-26 17:48 | NUR ---
Patient discharged to home in stable conditon. Written and verbal after care instructions given. Patient verbalizes understanding of instructions. Stressed follow up with pmd or return to ER for worsening s/s.
[2017-03-26 17:50] VITALS: BP 125/53
== END 2017-03-26 17:50 | disposition home or self-care (01) ==
LOC: ER 15:48
DX: I10 Essential (primary) hypertension (principal); J44.9 Chronic obstructive pulmonary disease, unspecified; K21.9 Gastro-esophageal reflux disease without esophagitis; Z86.73 Personal history of transient ischemic attack (TIA), and cerebral infarction without residual deficits; Z88.5 Allergy status to narcotic agent; F17.200 Nicotine dependence, unspecified, uncomplicated
CPT/HCPCS: A4663

== ENCOUNTER 2017-04-09 06:07 | Emergency (ER) | payer MEDICARE, OTHER ==
[~2017-04-09] VITALS: Ht 152.4 cm; Wt 49.0 kg
[~2017-04-09 06:07] MED LIST changes: +DORZ10DR10 EACHEYE; -DORZ10DR8 EACHEYE
[2017-04-09] MEDS ORDERED: LISI1TAB9 PO (06:23)
--- NOTE | 2017-04-09 06:40 | NUR ---
Dr. Parish at bedside for MSE
--- NOTE | 2017-04-09 07:20 | NUR ---
Report given to JACKIE Levine. I relinquish care of pt at this time.
--- NOTE | 2017-04-09 07:30 | NUR ---
Pt is resting in bed, states awaiting for her ride home.
[2017-04-09 07:41] VITALS: BP 122/66
--- NOTE | 2017-04-09 08:00 | NUR ---
Patient discharged to home in stable conditon. Written and verbal after care instructions given. Patient verbalizes understanding of instructions. Pt walked out of ER w/ steady gait.
== END 2017-04-09 08:01 | disposition home or self-care (01) ==
LOC: ER 06:10
DX: I10 Essential (primary) hypertension (principal); J44.9 Chronic obstructive pulmonary disease, unspecified; K21.9 Gastro-esophageal reflux disease without esophagitis; Z86.73 Personal history of transient ischemic attack (TIA), and cerebral infarction without residual deficits; Z87.891 Personal history of nicotine dependence; Z88.5 Allergy status to narcotic agent; Z90.89 Acquired absence of other organs; Z91.013 Allergy to seafood; Z88.8 Allergy status to other drugs, medicaments and biological substances; Z79.899 Other long term (current) drug therapy
CPT/HCPCS: A4663

== ENCOUNTER 2017-05-01 14:15 | Emergency (ER) | payer MEDICARE, OTHER ==
[~2017-05-01] VITALS: Ht 152.4 cm; Wt 48.1 kg
[~2017-05-01 14:15] MED LIST changes: -AMLO5TAB2 PO; -ATOR10TA PO; +LISI1TAB9 PO
--- NOTE | 2017-05-01 17:29 | NUR ---
Patient discharged to home in stable conditon. Written and verbal after care instructions given. Patient verbalizes understanding of instructions.PT WALKS IN STEADY GAIT. PT DENEIS ANY HEADACHE, DIZZINESS.
[2017-05-01 17:37] VITALS: BP 141/61
== END 2017-05-01 17:38 | disposition home or self-care (01) ==
LOC: ER 14:15
DX: R51 Headache (principal); I10 Essential (primary) hypertension; J44.9 Chronic obstructive pulmonary disease, unspecified; K21.9 Gastro-esophageal reflux disease without esophagitis; Z86.73 Personal history of transient ischemic attack (TIA), and cerebral infarction without residual deficits; Z90.89 Acquired absence of other organs; Z88.5 Allergy status to narcotic agent; Z88.8 Allergy status to other drugs, medicaments and biological substances; Z91.013 Allergy to seafood; Z79.899 Other long term (current) drug therapy
CPT/HCPCS: 70450; A4663

== ENCOUNTER 2017-11-14 02:31 | Emergency (ER) | payer MEDICARE, OTHER ==
[~2017-11-14] VITALS: Ht 152.4 cm; Wt 48.1 kg
--- NOTE | 2017-11-14 02:49 | NUR ---
Dr. Jorge at bedside for MSE.
[2017-11-14] MEDS ORDERED: ACETAMINOPHEN 325 MG TABLET PO ONE (03:00)
[2017-11-14] MEDS ORDERED: ACETAMINOPHEN 325 MG TABLET ONE (03:00)
[2017-11-14 03:17] LABS: BASOPHILS % (AUTO) 0.7 % (0.0-2.0); EOSINOPHILS # (AUTO) 0.2 K/uL (0.0-0.7); EOSINOPHILS % (AUTO) 2.9 % (0.0-7.0); HEMATOCRIT 36.2 % (31.2-41.9); HEMOGLOBIN 12.5 g/dL (10.9-14.3); LYMPHOCYTES # (AUTO) 1.8 K/uL (20.0-40.0); LYMPHOCYTES % (AUTO) 29.8 % (20.5-51.5); MEAN CORPUSCULAR HEMOGLOBIN 32.3 uug (24.7-32.8); MEAN CORPUSCULAR HGB CONC 35 g/dL (32.3-35.6); MEAN CORPUSCULAR VOLUME 93.4 fL (75.5-95.3); MONOCYTES # (AUTO) 0.6 K/uL (2.0-10.0); MONOCYTES % (AUTO) 9.6 % (0.0-11.0); NEUTROPHILS # (AUTO) 3.5 K/uL (1.8-8.9); PLATELET COUNT (AUTO) 182 K/uL (179-408); RED BLOOD CELL COUNT(AUTO) 3.88 MIL/uL (3.63-4.92); WHITE BLOOD COUNT (AUTO) 6.1 K/uL (3.8-11.8)
[2017-11-14 03:19] LABS: CARBON DIOXIDE 29 mmol/L (21-32); CHLORIDE 106 mmol/L (98-107); CREATININE 0.9 mg/dL (0.6-1.3); GLUCOSE 96 mg/dL (74-106); POTASSIUM 3.8 mmol/L (3.5-5.1); UREA NITROGEN, BLOOD 22 mg/dL (7-18)
--- NOTE | 2017-11-14 03:25 | NUR ---
Pt out of ER for CT.
--- NOTE | 2017-11-14 03:34 | NUR ---
Pt back to ER from CT.
--- NOTE | 2017-11-14 04:36 | NUR ---
Patient discharged to home in stable conditon. Written and verbal after care instructions given. Patient verbalizes understanding of instructions. Patient ambulated out of ER with steady gait, no acute signs of distress, VSS, all belongings taken, taxi to drive patient to home.
[2017-11-14 04:38] VITALS: BP 107/55
== END 2017-11-14 04:38 | disposition home or self-care (01) ==
LOC: ER 02:34
DX: I10 Essential (primary) hypertension (principal); F41.9 Anxiety disorder, unspecified; J44.9 Chronic obstructive pulmonary disease, unspecified; K21.9 Gastro-esophageal reflux disease without esophagitis; E78.5 Hyperlipidemia, unspecified; F17.200 Nicotine dependence, unspecified, uncomplicated; Z88.5 Allergy status to narcotic agent; Z88.8 Allergy status to other drugs, medicaments and biological substances; Z91.013 Allergy to seafood
CPT/HCPCS: 36415; 70450; 85025; 93005; A4663

== ENCOUNTER 2018-09-12 11:09 | Inpatient (IN) | payer MEDICARE, OTHER ==
[~2018-09-12] VITALS: Ht 152.4 cm; Wt 47.6 kg
[~2018-09-12 11:09] MED LIST changes: +LISI1TAB32 PO; -LISI1TAB9 PO
[2018-09-12] MEDS ORDERED: MAG HYDROX/AL HYDROX/SIMETH 30 ML LIQUID UDC ONE (11:37)
[2018-09-12] MEDS ORDERED: LIDOCAINE VISCUS 2% 15 ML UDC ONE (11:37)
[2018-09-12] MEDS ORDERED: PANTOPRAZOLE SODIUM 40 MG TABLET.DR PO ONE ×2 (11:38→11:45)
[2018-09-12] MEDS ORDERED: AMLO2.5T4 PO (11:41)
[2018-09-12] MEDS ORDERED: RANI150C4 PO (11:41)
[2018-09-12] MEDS ORDERED: FAMO10TA41 PO (11:41)
[2018-09-12] MEDS ORDERED: MAG HYDROX/AL HYDROX/SIMETH 30 ML LIQUID UDC PO ONE (11:45)
[2018-09-12] MEDS ORDERED: ONDANSETRON ODT 4 MG TAB.RAPDIS SL ONE (11:45)
[2018-09-12] MEDS ORDERED: LIDOCAINE VISCUS 2% 15 ML UDC MM ONE (11:45)
[2018-09-12 11:53] LABS: BASOPHILS # (AUTO) 0.1 K/uL (0.0-8.0); BASOPHILS % (AUTO) 0.7 % (0.0-2.0); EOSINOPHILS # (AUTO) 0.2 K/uL (0.0-0.7); EOSINOPHILS % (AUTO) 2.2 % (0.0-7.0); HEMATOCRIT 41.5 % (31.2-41.9); HEMOGLOBIN 13.9 g/dL (10.9-14.3); LYMPHOCYTES # (AUTO) 1.9 K/uL (20.0-40.0); LYMPHOCYTES % (AUTO) 22.6 % (20.5-51.5); MEAN CORPUSCULAR HEMOGLOBIN 31.5 uug (24.7-32.8); MEAN CORPUSCULAR HGB CONC 34 g/dL (32.3-35.6); MEAN CORPUSCULAR VOLUME 93.8 fL (75.5-95.3); MONOCYTES # (AUTO) 0.6 K/uL (2.0-10.0); MONOCYTES % (AUTO) 7.1 % (0.0-11.0); NEUTROPHILS # (AUTO) 5.5 K/uL (1.8-8.9); NEUTROPHILS % (AUTO) 67.4 % (38.5-71.5); PLATELET COUNT (AUTO) 190 K/uL (179-408); RED BLOOD CELL COUNT(AUTO) 4.42 MIL/uL (3.63-4.92); WHITE BLOOD COUNT (AUTO) 8.2 K/uL (3.8-11.8)
[2018-09-12] MEDS ORDERED: ONDANSETRON ODT 4 MG TAB.RAPDIS ONE (11:54)
[2018-09-12 12:14] LABS: ALANINE AMINOTRANSFERASE 30 U/L (14-59); ALKALINE PHOSPHATASE 65 U/L (50-136); ASPARTATE AMINOTRANSFERASE 17 U/L (15-37); BILIRUBIN,DIRECT 0.1 mg/dL (0.0-0.2); BILIRUBIN,TOTAL 0.4 mg/dL (0.2-1.0); CARBON DIOXIDE 30 mmol/L (21-32); CHLORIDE 107 mmol/L (98-107); CREATININE 0.9 mg/dL (0.6-1.3); GLUCOSE 94 mg/dL (74-106); POTASSIUM 3.4 mmol/L (3.5-5.1); TOTAL PROTEIN, SERUM 7.1 g/dL (6.4-8.2); UREA NITROGEN, BLOOD 16 mg/dL (7-18)
[2018-09-12 12:32] LABS: LIPASE 157 U/L (73-393)
[2018-09-12] MEDS ORDERED: MORPHINE SULFATE 2 MG/1 ML DISP.SYRIN IV ONE (13:30)
[2018-09-12] MEDS ORDERED: ONDANSETRON 4 MG/2 ML VIAL IV ONE (13:30)
[2018-09-12] MEDS ORDERED: MORPHINE SULFATE 2 MG/1 ML DISP.SYRIN ONE (13:38)
[2018-09-12] MEDS ORDERED: ONDANSETRON 4 MG/2 ML VIAL ONE (13:38)
[2018-09-12] MEDS ORDERED: Medication Not On Formulary EA (Famotidine (Pepcid Ac) 10 MG) PO SCH (14:15)
[2018-09-12] MEDS ORDERED: DOCUSATE SODIUM 100 MG CAPSULE PO PRN (14:15)
[2018-09-12] MEDS ORDERED: MAG HYDROX/AL HYDROX/SIMETH 30 ML LIQUID UDC PO PRN (14:15)
[2018-09-12] MEDS ORDERED: NITROGLYCERIN 0.4 MG/TAB BOTTLE SL PRN (14:15)
[2018-09-12] MEDS ORDERED: ALBUTEROL SULFATE 8 GM HFA.AER.AD INH PRN (14:15)
[2018-09-12] MEDS ORDERED: ACETAMINOPHEN 325 MG TABLET PO PRN (14:15)
[2018-09-12] MEDS ORDERED: ALBUTEROL SULFATE 2.5 MG/3 ML NEBU NEB PRN (15:00)
--- NOTE | 2018-09-12 15:00 | NUR ---
received from ER awake alert and oriented, with c/o epigastric pain at home but subsided at this time after meds given in ER, denies of nausea, routine admission care rendered, assessment done, safety measures initiated, informed plan of care verbalized understanding, call light within reach.
--- NOTE | 2018-09-12 15:00 | NUR ---
Pt. admitted to TELE, under care of Maya Middleton (JERRI). Belongs List completed
[2018-09-12 15:15] VITALS: BP 123/58
--- NOTE | 2018-09-12 16:00 | NUR ---
endorsed care to Katie MEJIA
[2018-09-12 17:31] LABS: *BILIRUBIN,URIN NEGATIVE (NEGATIVE); *BLOOD, URINE NEGATIVE (NEGATIVE); *CLARITY,URINE CLEAR (CLEAR); *COLOR,URINE LIGHT YELLOW (YELLOW); *KETONES,URINE NEGATIVE (NEGATIVE); *UROBILINOGEN,URINE 0.2 E.U./dl (NORMAL); LEUKOCYTE ESTERASE ,URINE NEGATIVE (NEGATIVE); NITRITE, URINE NEGATIVE (NEGATIVE); PH,URINE 6.5 (5.0-8.0); UGLUCOSE NEGATIVE (NEGATIVE)
[2018-09-12] MEDS: DORZOLAMIDE 2% OPHT DROP 10 ML BOTTLE EACHEYE SCH (17:50)
[2018-09-12] MEDS ORDERED: BIMATOPROST 0.01% OPHT DROP 2.5 ML BOTTLE EACHEYE SCH (18:00)
[2018-09-12] MEDS: ONDANSETRON 4 MG/2 ML VIAL IV PRN (18:49)
--- NOTE | 2018-09-12 19:20 | NUR ---
Nurse Notes: Report given to night nurse Mike Beal RN, nausea is much more relieved. after IV zofran was given.
[2018-09-12 20:04] VITALS: BP 115/43
[2018-09-12] MEDS: LATANOPROST OPHT DROP 2.5 ML BOTTLE EACHEYE SCH (21:00)
[2018-09-12] MEDS: LUMIGAN 0.01% EACHEYE SCH (21:07)
[2018-09-12] MEDS: SIMVASTATIN 20 MG TABLET PO SCH (21:07)
[2018-09-13 00:48] VITALS: BP 120/42
[2018-09-13 04:00] VITALS: BP 125/51
[2018-09-13] MEDS: PANTOPRAZOLE SODIUM 40 MG TABLET.DR PO SCH (06:37)
[2018-09-13 07:03] LABS: CARBON DIOXIDE 30 mmol/L (21-32); CHLORIDE 107 mmol/L (98-107); GLUCOSE 96 mg/dL (74-106); POTASSIUM 4.1 mmol/L (3.5-5.1); UREA NITROGEN, BLOOD 17 mg/dL (7-18)
[2018-09-13 07:04] LABS: BASOPHILS # (AUTO) 0.1 K/uL (0.0-8.0); BASOPHILS % (AUTO) 0.7 % (0.0-2.0); EOSINOPHILS # (AUTO) 0.2 K/uL (0.0-0.7); EOSINOPHILS % (AUTO) 2.3 % (0.0-7.0); HEMATOCRIT 39.4 % (31.2-41.9); HEMOGLOBIN 13.4 g/dL (10.9-14.3); LYMPHOCYTES # (AUTO) 2.7 K/uL (20.0-40.0); LYMPHOCYTES % (AUTO) 35.2 % (20.5-51.5); MEAN CORPUSCULAR HEMOGLOBIN 31.9 uug (24.7-32.8); MEAN CORPUSCULAR HGB CONC 34 g/dL (32.3-35.6); MONOCYTES # (AUTO) 0.6 K/uL (2.0-10.0); MONOCYTES % (AUTO) 8.2 % (0.0-11.0); NEUTROPHILS # (AUTO) 4.1 K/uL (1.8-8.9); NEUTROPHILS % (AUTO) 53.6 % (38.5-71.5); PLATELET COUNT (AUTO) 167 K/uL (179-408); RED BLOOD CELL COUNT(AUTO) 4.19 MIL/uL (3.63-4.92); WHITE BLOOD COUNT (AUTO) 7.6 K/uL (3.8-11.8)
[2018-09-13 07:09] LABS: ALANINE AMINOTRANSFERASE 23 U/L (14-59); ALKALINE PHOSPHATASE 56 U/L (50-136); ASPARTATE AMINOTRANSFERASE 17 U/L (15-37); BILIRUBIN,TOTAL 0.6 mg/dL (0.2-1.0); CHOLESTEROL 205 mg/dL (<200); HDL CHOLESTEROL 78 mg/dL (40-60); MAGNESIUM 2.2 mg/dL (1.8-2.4); TOTAL PROTEIN, SERUM 6.5 g/dL (6.4-8.2); TRIGLYCERIDES 44 MG/DL (30-150)
[2018-09-13 08:25] LABS: THYROID STIMULATING HORMONE 1.351 mIU/mL (0.358-3.740)
[2018-09-13] MEDS: AMLODIPINE 2.5 MG TABLET PO SCH (09:00)
[2018-09-13] MEDS: ASPIRIN 81 MG TAB.CHEW PO SCH (09:33)
[2018-09-13] MEDS: ONDANSETRON 4 MG/2 ML VIAL IV PRN (09:36)
[2018-09-13] MEDS: DORZOLAMIDE 2% OPHT DROP 10 ML BOTTLE EACHEYE SCH ×2 (09:36→17:49)
[2018-09-13 11:40] VITALS: BP 126/56
[2018-09-13] MEDS ORDERED: IV NS 1000 ML 1,000 ML IV PRN (12:30)
[2018-09-13 15:45] VITALS: BP 104/68
[2018-09-13] MEDS: MIRALAX 17 GM POWD.PACK PO PRN (19:03)
--- NOTE | 2018-09-13 19:08 | NUR ---
Patient AO 4, no distress, complained of stomach pain in the am and kee helpt a little, she was NPO but Sincere saw the patient and US was ordered. Called US no one picked up , so order was resume diet as advanced. Pure diet was given for dinner and no pain after food consumption. Safety maintained
--- NOTE | 2018-09-13 19:20 | NUR ---
Received patient lying in bed. Awake but confused and disoriented. In no acute distress. No signs or symptoms of pain or SOB. O2 sat at 95% on RA. IV site on right wrist area intact and patent. NSR on tele at 72/min. Safety measure initiated and call ortiz within reach. Telephone call to JERRI Carrero, still needing admitting orders. Addendum: 09/13/18 at 2020 by JEANNIE BERGER RN wrong patient.
--- NOTE | 2018-09-13 19:20 | NUR ---
Received patient lying in bed. AAOx4. In no acute distress. Denies any pain or SOB at this time. NSR on tele at 65/min. IV site on right AC intact and patent. IVF infusing. Needs attended to and met. Safety measure initiated and call ortiz within reach.
[2018-09-13] MEDS ORDERED: FAMO40TA71 PO (19:57)
[2018-09-13 20:20] VITALS: BP 105/58
[2018-09-13] MEDS: LATANOPROST OPHT DROP 2.5 ML BOTTLE EACHEYE SCH (21:00)
[2018-09-13] MEDS: SIMVASTATIN 20 MG TABLET PO SCH (21:05)
[2018-09-13] MEDS: LUMIGAN 0.01% EACHEYE SCH (21:05)
[2018-09-14 00:10] VITALS: BP 138/65
[2018-09-14] MEDS: AMLODIPINE 2.5 MG TABLET PO SCH (00:19)
--- NOTE | 2018-09-14 00:19 | NUR ---
Patient requesting to get her Amlodipine tonight. Stated she usually get it at night time. BP at 138/65. She is concern that her BP might go up further since she was not given her daily dose this morning. Waiter/Waitress Economy Class Elvi aware and instructed this nurse to go ahead and give patient her Amlodipine. Gave 2.5mg PO.
[2018-09-14 04:00] VITALS: BP 119/42
[2018-09-14] MEDS: ONDANSETRON 4 MG/2 ML VIAL IV PRN (05:34)
[2018-09-14] MEDS: PANTOPRAZOLE SODIUM 40 MG TABLET.DR PO SCH (06:06)
--- NOTE | 2018-09-14 06:16 | NUR ---
AAOx4. In no acute distress. Denies any pain or SOB at this time. NSR with occasional sinus gage on tele at 62/min. IV site on right AC intact and patent. IVF infusing. Zofran IV given x1 for upset stomach with helped. Needs attended to and met. NPO at this time. For US liver and gallbladder today. Safety measure maintained and call ortiz within reach.
[2018-09-14 06:31] LABS: BASOPHILS % (AUTO) 0.7 % (0.0-2.0); EOSINOPHILS # (AUTO) 0.2 K/uL (0.0-0.7); EOSINOPHILS % (AUTO) 2.9 % (0.0-7.0); HEMATOCRIT 38.9 % (31.2-41.9); HEMOGLOBIN 13.2 g/dL (10.9-14.3); LYMPHOCYTES # (AUTO) 2.7 K/uL (20.0-40.0); MEAN CORPUSCULAR HEMOGLOBIN 31.9 uug (24.7-32.8); MEAN CORPUSCULAR HGB CONC 34 g/dL (32.3-35.6); MEAN CORPUSCULAR VOLUME 93.7 fL (75.5-95.3); MONOCYTES # (AUTO) 0.5 K/uL (2.0-10.0); MONOCYTES % (AUTO) 8.5 % (0.0-11.0); NEUTROPHILS % (AUTO) 46.9 % (38.5-71.5); PLATELET COUNT (AUTO) 179 K/uL (179-408); RED BLOOD CELL COUNT(AUTO) 4.15 MIL/uL (3.63-4.92); WHITE BLOOD COUNT (AUTO) 6.5 K/uL (3.8-11.8)
[2018-09-14 06:38] LABS: CARBON DIOXIDE 28 mmol/L (21-32); CHLORIDE 110 mmol/L (98-107); CREATININE 0.9 mg/dL (0.6-1.3); GLUCOSE 88 mg/dL (74-106); MAGNESIUM 2.3 mg/dL (1.8-2.4); PHOSPHOROUS 2.9 mg/dL (2.5-4.9); POTASSIUM 3.9 mmol/L (3.5-5.1); UREA NITROGEN, BLOOD 14 mg/dL (7-18)
[2018-09-14] MEDS: ASPIRIN 81 MG TAB.CHEW PO SCH (10:43)
[2018-09-14] MEDS: DORZOLAMIDE 2% OPHT DROP 10 ML BOTTLE EACHEYE SCH ×2 (10:44→16:54)
--- NOTE | 2018-09-14 10:49 | NUR ---
Changed Norvasc for 2100, Taz ordered, patient stated she takes this medication only at night.
[2018-09-14 11:33] VITALS: BP 117/42
[2018-09-14] MEDS: MIRALAX 17 GM POWD.PACK PO PRN (12:28)
[2018-09-14] MEDS ORDERED: FLEET ENEMA 133 ML BOTTLE RC PRN (13:00)
[2018-09-14] MEDS ORDERED: BISACODYL 5 MG TABLET.DR PO ONE (13:00)
[2018-09-14] MEDS ORDERED: BISACODYL 10 MG SUPP.RECT RC PRN (13:45)
--- NOTE | 2018-09-14 15:46 | NUR ---
Spoke with Doctor Post on the phone and read the report of US.
[2018-09-14 16:02] VITALS: BP 123/40
--- NOTE | 2018-09-14 18:39 | NUR ---
AAOx4. In no acute distress. Denies any pain or SOB at this time. IV site on left FA 22 g started, intact and patent. Needs attended to and met. Soft diet tolerated well and regular diet tolerated well at this time. Safety measure maintained and call ortiz within reach.
--- NOTE | 2018-09-14 19:20 | NUR ---
Received patient lying in bed. Family on bedside. AAOx4. In no acute distress. Denies any pain or SOB at this time. IV site on left FA intact and patent. Needs assessed and attended to. Safety measure initiated and call ortiz within reach.
[2018-09-14 20:09] VITALS: BP 128/56
[2018-09-14] MEDS ORDERED: AMLODIPINE 2.5 MG TABLET PO SCH (21:00)
[2018-09-14] MEDS: LATANOPROST OPHT DROP 2.5 ML BOTTLE EACHEYE SCH (21:00)
[2018-09-14] MEDS: SIMVASTATIN 20 MG TABLET PO SCH (21:54)
[2018-09-14] MEDS: LUMIGAN 0.01% EACHEYE SCH (21:54)
[2018-09-15] MEDS: PANTOPRAZOLE SODIUM 40 MG TABLET.DR PO SCH (06:10)
[2018-09-15 06:11] LABS: BASOPHILS % (AUTO) 0.6 % (0.0-2.0); EOSINOPHILS # (AUTO) 0.2 K/uL (0.0-0.7); EOSINOPHILS % (AUTO) 2.8 % (0.0-7.0); LYMPHOCYTES # (AUTO) 2.6 K/uL (20.0-40.0); LYMPHOCYTES % (AUTO) 41.7 % (20.5-51.5); MEAN CORPUSCULAR HEMOGLOBIN 31.8 uug (24.7-32.8); MEAN CORPUSCULAR HGB CONC 34 g/dL (32.3-35.6); MEAN CORPUSCULAR VOLUME 93.3 fL (75.5-95.3); MONOCYTES # (AUTO) 0.5 K/uL (2.0-10.0); MONOCYTES % (AUTO) 8.1 % (0.0-11.0); NEUTROPHILS # (AUTO) 2.9 K/uL (1.8-8.9); NEUTROPHILS % (AUTO) 46.8 % (38.5-71.5); PLATELET COUNT (AUTO) 168 K/uL (179-408); RED BLOOD CELL COUNT(AUTO) 4.08 MIL/uL (3.63-4.92); WHITE BLOOD COUNT (AUTO) 6.2 K/uL (3.8-11.8)
--- NOTE | 2018-09-15 06:13 | NUR ---
AAOx4. In no acute distress. No pain or SOB complain. IV site on left FA intact and patent. Needs attended to and met. Safety measure maintained and call ortiz within reach.
[2018-09-15 06:21] LABS: CARBON DIOXIDE 24 mmol/L (21-32); CHLORIDE 111 mmol/L (98-107); CREATININE 0.9 mg/dL (0.6-1.3); GLUCOSE 89 mg/dL (74-106); POTASSIUM 4.1 mmol/L (3.5-5.1); UREA NITROGEN, BLOOD 11 mg/dL (7-18)
[2018-09-15 06:30] VITALS: BP 115/62
[2018-09-15] MEDS: ASPIRIN 81 MG TAB.CHEW PO SCH (08:24)
[2018-09-15] MEDS: DORZOLAMIDE 2% OPHT DROP 10 ML BOTTLE EACHEYE SCH (08:24)
[2018-09-15] MEDS ORDERED: BISA-79 PO (09:09)
[2018-09-15] MEDS ORDERED: OMEP20TA20 PO (09:09)
[2018-09-15] MEDS ORDERED: POLY119P2 PO (09:09)
[2018-09-15 11:30] VITALS: BP 134/46
--- NOTE | 2018-09-15 15:03 | NUR ---
dc orders received noted and carried out,dc heplock per md orders,dc instruction given to the pt,pt left the facility via private car in stable condition
[2018-09-15 15:28] LABS: *OCCULT BLOOD STOOL NEGATIVE (NEGATIVE)
== END 2018-09-15 15:07 | disposition home or self-care (01) | DRG 392 ==
LOC: ER 11:09 → TELE3 14:24 → MEDSURG3 09-14 16:15
PROVIDERS: ADMIT Registered Nurse; ATTEND Registered Nurse
DX: K21.9 Gastro-esophageal reflux disease without esophagitis (principal); K29.70 Gastritis, unspecified, without bleeding; J44.9 Chronic obstructive pulmonary disease, unspecified; I10 Essential (primary) hypertension; Z86.73 Personal history of transient ischemic attack (TIA), and cerebral infarction without residual deficits; H40.9 Unspecified glaucoma; E87.6 Hypokalemia; K57.30 Diverticulosis of large intestine without perforation or abscess without bleeding; Z86.79 Personal history of other diseases of the circulatory system; Z87.891 Personal history of nicotine dependence; Z79.899 Other long term (current) drug therapy; K59.00 Constipation, unspecified
CPT/HCPCS: 36415; 70030-TC; 71045; 76700; 83690; 83735; 84100; 84443; 85025; 93005; 93307; A4663; G0378; J2270; J2405; J7030; Q0162

== ENCOUNTER 2019-01-03 08:57 | Emergency (ER) | payer MEDICARE, OTHER ==
[~2019-01-03] VITALS: Ht 152.4 cm; Wt 47.6 kg
[~2019-01-03 08:57] MED LIST changes: +AMLO2.5T4 PO; +BISA-79 PO; -HYDR25TA86 PO; -LISI1TAB32 PO; +OMEP20TA20 PO; -PANT40TA2 PO; +POLY119P2 PO
--- NOTE | 2019-01-03 09:10 | NUR ---
Dr Erwin at the bedside for MSE.
[2019-01-03] MEDS ORDERED: MAG HYDROX/AL HYDROX/SIMETH 30 ML LIQUID UDC ONE (09:18)
[2019-01-03] MEDS ORDERED: LIDOCAINE VISCUS 2% 15 ML UDC ONE (09:18)
[2019-01-03] MEDS: LIDOCAINE VISCUS 2% 15 ML UDC MM ONE (09:19)
[2019-01-03] MEDS: MAG HYDROX/AL HYDROX/SIMETH 30 ML LIQUID UDC PO ONE (09:19)
[2019-01-03 09:49] LABS: HEMATOCRIT 40.9 % (37-47); HEMOGLOBIN 13.6 G/DL (12.0-16.0); MEAN CORPUSCULAR HGB CONC 33 g/dL (32.0-37.0); MEAN CORPUSCULAR VOLUME 96.7 FL (81.0-99.0); PLATELET COUNT (AUTO) 160 K/UL (150-450); RED BLOOD CELL COUNT(AUTO) 4.23 MIL/UL (4.2-5.4); WHITE BLOOD COUNT (AUTO) 6.3 K/UL (4.0-11.2)
[2019-01-03 09:50] LABS: BASOPHILS # (AUTO) 0.1 K/uL (0.0-8.0); EOSINOPHILS # (AUTO) 0.1 K/uL (0.0-0.7); EOSINOPHILS % (AUTO) 1.9 % (0.0-7.0); LYMPHOCYTES # (AUTO) 1.9 K/UL (0.8-4.8); LYMPHOCYTES % (AUTO) 30.3 % (20.5-51.5); MONOCYTES # (AUTO) 0.4 K/UL (0.1-1.30); MONOCYTES % (AUTO) 6.9 % (0.0-11.0); NEUTROPHILS # (AUTO) 3.8 K/UL (1.8-8.9); NEUTROPHILS % (AUTO) 59.9 % (38.5-71.5)
[2019-01-03 10:05] LABS: BILIRUBIN,DIRECT 0.1 mg/dL (0.0-0.2); BILIRUBIN,TOTAL 0.4 mg/dL (0.2-1.0); CARBON DIOXIDE 30 mmol/L (21-32); CHLORIDE 107 mmol/L (98-107); CREATININE 0.8 mg/dL (0.6-1.3); GLUCOSE 96 mg/dL (74-106); POTASSIUM 4.4 mmol/L (3.5-5.1); UREA NITROGEN, BLOOD 12 mg/dL (7-18)
[2019-01-03 10:06] LABS: ALANINE AMINOTRANSFERASE 24 U/L (14-59); ALKALINE PHOSPHATASE 64 U/L (50-136); ASPARTATE AMINOTRANSFERASE 20 U/L (15-37); LIPASE 92 U/L (73-393); TOTAL PROTEIN, SERUM 6.7 g/dL (6.4-8.2)
[2019-01-03 10:34] VITALS: BP 139/60
--- NOTE | 2019-01-03 10:38 | NUR ---
Pt's BP remaines unchanged. Pt has no S/S hyper/hypotension.
--- NOTE | 2019-01-03 10:46 | NUR ---
Patient discharged to home in stable conditon. Written and verbal after care instructions given. Patient verbalizes understanding of instructions.
== END 2019-01-03 10:47 | disposition home or self-care (01) ==
LOC: ER 08:57
DX: R10.9 Unspecified abdominal pain (principal); I10 Essential (primary) hypertension; J44.9 Chronic obstructive pulmonary disease, unspecified; K21.9 Gastro-esophageal reflux disease without esophagitis; F17.200 Nicotine dependence, unspecified, uncomplicated; Z91.013 Allergy to seafood; Z88.8 Allergy status to other drugs, medicaments and biological substances; Z88.5 Allergy status to narcotic agent; Z79.899 Other long term (current) drug therapy; Z86.73 Personal history of transient ischemic attack (TIA), and cerebral infarction without residual deficits
CPT/HCPCS: 36415; 70030-TC; 71045; 83690; 85025; 93005; A4663

== ENCOUNTER 2020-06-21 17:32 | Emergency (ER) | payer MEDICARE, OTHER ==
[~2020-06-21] VITALS: Ht 152.4 cm; Wt 48.1 kg
[~2020-06-21 17:32] MED LIST changes: -BISA-79 PO; -OMEP20TA20 PO; -POLY119P2 PO
--- NOTE | 2020-06-21 19:15 | NUR ---
Patient wants to leave, patient will be leaving without being seen by ERMD. Patient stated, "I cannot wait any longer, and I just want to go home." Patient A/Ox4. Able to ambulate with steady gait. Patient will have a ride home by family. No SI/HI, or any A/V hallucinations.
== END 2020-06-21 19:21 | disposition left against medical advice (07) ==
LOC: ER 17:33
DX: Z53.21 Procedure and treatment not carried out due to patient leaving prior to being seen by health care provider (principal)

== ENCOUNTER 2021-08-23 13:27 | Emergency (ER) | payer MEDICARE, OTHER ==
[~2021-08-23] VITALS: Ht 154.9 cm; Wt 48.5 kg
--- NOTE | 2021-08-23 13:43 | NUR ---
MD@[email or web address], medical screening exam in progress
--- NOTE | 2021-08-23 14:08 | NUR ---
Patient discharged and medically cleared to go home by Dr Erwin. Patient has slow steady gait. Written and verbal after care instructions was given to patient. Patient verbalized understanding and compliance of instructions but refused to sign discharge papers. Stressed follow up with primary doctor or return to ER for worsening s/s. Patient refused bus tap card. TAXI voucher was requested from nursing medical supervisor Kiesha. Patient will wait in the ER waiting room for her taxi. ER drop worker Chani Macedo was called as well.
[2021-08-23 14:20] VITALS: BP 136/66
--- NOTE | 2021-08-23 15:19 | NUR ---
Social Work consult was requested for a patient in the emergency room. Patient is an 89-year-old female admitted to the emergency room for anxiety. Upon criminal justice social worker assessment, patient is alert and oriented X4. Patient presents with anxious mood and full range affect. Patient presents with coherent, and goal directed thought process. Patient presents with good judgement and insight. SW explored patients support system. Patient states her daughter, Aileen [phone]) is her primary slot machine floor person, and they have a good relationship. Patient lives alone [place] [address] [place] [address] in [address] studio. Patient states that she has home health services that come three or four times a week for 5 hours a day. Patient is independent with ADLs, does not have any medical equipment at home and is not currently driving. SW made an Adult Protective Service Report (Intake ID [id number]) for self-neglect. SW placed a copy of the Adult Protective Service Report in the patients chart. Nurse, Carola, stated that patient was medically cleared for discharge. Patient was given a taxi voucher for transportation and is going home at discharge.
== END 2021-08-23 15:01 | disposition home or self-care (01) ==
LOC: ER 13:28
DX: I10 Essential (primary) hypertension (principal); F41.9 Anxiety disorder, unspecified; J44.9 Chronic obstructive pulmonary disease, unspecified; Z86.73 Personal history of transient ischemic attack (TIA), and cerebral infarction without residual deficits; Z86.79 Personal history of other diseases of the circulatory system; Z88.5 Allergy status to narcotic agent; Z91.013 Allergy to seafood
CPT/HCPCS: A4663